=== PATIENT | male | born 1975 | race Caucasian/White ===

== ENCOUNTER 2024-08-26 16:32 | Inpatient (IN) | payer OTHER, SELFPAY ==
[2024-08-26 12:21] VITALS: BP 140/90
[2024-08-26 12:44] LABS: % Basophils 0.6 % (0-2); % Eosinophils 2.1 % (0-6); % Immature Granulocytes 0.9 % (0-0.5); % Lymphocytes 9.3 % (20.5-51.1); % Monocytes 8.6 % (1.7-9.3); % Neutrophils 78.5 % (42.2-75.2); Absolute Basophils 0.1 10^3/uL (0-0.2); Absolute Eosinophils 0.2 10^3/uL (0-0.7); Absolute Immature Granulocytes 0.1 10^3/uL (0-0.05); Absolute Lymphocytes 0.9 10^3/uL (1.2-3.4); Absolute Monocytes 0.8 10^3/uL (0.1-0.6); Absolute Neutrophils 7.4 10^3/uL (1.4-6.5); Hematocrit 37.7 % (39.0-52.0); Hemoglobin 12.7 g/dL (13.0-18.0); Mean Corp Hgb Conc. 33.7 g/dL (33.0-37.0); Mean Corpuscular Hgb 30.8 pg (27.0-31.0); Mean Corpuscular Volume 91.3 fL (80.0-94.0); Mean Platelet Volume 12.3 fL (7.4-10.4); Nucleated Red Blood Cells % 0 % (-); Platelet Count 200 10^3/uL (130-400); Red Blood Cell Count 4.13 10^6/uL (4.70-6.10); Red Cell Dist. Width 12.9 % (11.5-14.5); White Blood Cell Count 9.4 10^3/uL (4.8-10.8)
[2024-08-26 13:42] LABS: ALT (SGPT) 194 U/L (0-50); AST (SGOT) 118 U/L (17-59); Albumin 3.9 g/dl (3.5-5.0); Alkaline Phosphatase 305 U/L (38-126); Blood Urea Nitrogen 20 mg/dl (9-20); Calcium 8.9 mg/dl (8.4-10.2); Carbon Dioxide 19 mmol/L (22-30); Chloride 105 mmol/L (98-107); Glucose 101 mg/dl (70-99); Potassium 5.2 mmol/L (3.5-5.1); Sodium 137 mmol/L (135-145); Total Bilirubin 0.8 mg/dl (0.2-1.3); Total Protein 7.7 g/dl (6.3-8.2); eGFR > 60.00
--- NOTE | 2024-08-26 14:54 | ED.GENMED ---
History of Present Illness
General
Chief Complaint: Skin Problem
Source: patient
Exam Limitations: none
Time Seen by Provider: 08/26/24 14:28
Nursing documentation reviewed up to this point in time: agreed with
History of Present Illness
History of Present Illness:
The patient is a 48-year-old male with past history of hypertension hyperlipidemia presenting to the emergency department with concerns of right middle finger swelling and discomfort over the past few days. Saw his primary care doctor 2 days ago
and was started on Keflex as well as Bactrim and has been taking this as prescribed but has had worsening symptoms. No systemic symptoms no fevers no vomiting. Denies specific trauma to the area
Past History
Past History
ED Past Medical History: CAD, HTN and Hypercholesterolemia
ED Past Surgical History: Cardiac (Cardiac stents)
Social History
Tobacco: Non-smoker
Alcohol: Occasional
Drug: None
Employment: Employed
Family History
Family History: Other (Father with cancer of the tongue)
Review of Systems
Review of Systems
Allergies reviewed?: Yes
All Other Systems: ROS reviewed and negative except as documented in HPI and ROS
Phy Exam
Physical Exam
Physical Exam:
GENERAL: Alert , in no apparent distress
EYE: pupils equal and reactive
NECK: Supple, no significant adenopathy.
ENT: o/p clr, mmm.
CARDIAC: Regular rate and rhythm .
LUNGS: Clear breath sounds bilaterally, no acute respiratory distress, no wheezes/rales/rhonchi
ABDOMEN: Soft, without focal tenderness, no r/g, no cvat
NEUROLOGICAL: Alert and oriented, no focal neuro deficits
SKIN: Significant redness and swelling to the right middle finger with diffuse swelling circumferentially some redness extending into the palm with tenderness throughout. Unable to flex or extend the finger without significant discomfort. Holding
in a slight flexion
MUSCULOSKELETAL: No edema, well perfused.
PSYCH: Normal and appropriate interaction.
Course
Orders/Labs/Results
Orders:
Orders
08/26/24 12:33
Complete Blood Count/With Diff Urgent
Comprehensive Metabolic Panel Urgent
08/26/24 14:34
CR Hand - Right Min 3 Views Urgent
Comment:
Reason For Exam: middle finger swelling pain
08/26/24 14:35
CefTRIAXone [Rocephin] 2,000 mg IV NOW STA
08/26/24 14:39
Vancomycin [Vancocin] 2,000 mg 0.9% Sodium Chloride 500 ml [Nss] 500 ml IV NOW
08/26/24 14:43
Clindamycin 900 mg/50 ml [Cleocin] 900 mg in 50 ml IV NOW
08/26/24 14:55
Ketorolac [Toradol] 15 mg .ROUTE .STK-MED ONE
Sterile Water [Sterile Water For Injection] 20 ml .ROUTE .STK-MED ONE
08/26/24 14:58
Ketorolac [Toradol] 15 mg IV NOW STA
Abnormal Lab Results
08/26/24
12:33
RBC 4.13 L 10^6/uL
(4.70-6.10)
Hgb 12.7 L g/dL
(13.0-18.0)
Hct 37.7 L %
(39.0-52.0)
MPV 12.3 H fL
(7.4-10.4)
Abs Immat Gran (auto) 0.1 H 10^3/uL
(0-0.05)
Absolute Neuts (auto) 7.4 H 10^3/uL
(1.4-6.5)
Absolute Lymphs (auto) 0.9 L 10^3/uL
(1.2-3.4)
Absolute Monos (auto) 0.8 H 10^3/uL
(0.1-0.6)
Immature Gran % 0.9 H %
(0-0.5)
Neutrophils % 78.5 H %
(42.2-75.2)
Lymphocytes % 9.3 L %
(20.5-51.1)
Potassium 5.2 H mmol/L
(3.5-5.1)
Carbon Dioxide 19 L mmol/L
(22-30)
Glucose 101 H mg/dl
(70-99)
AST 118 H U/L
(17-59)
ALT 194 H U/L
(0-50)
Alkaline Phosphatase 305 H U/L
(38-126)
08/26/24 12:33
08/26/24 12:33
Vital Signs
Initial and Last Documented VS:
Initial Vital Signs
Temp Pulse Resp BP Pulse Ox
98.1 F 68 16 140/90 99
08/26/24 12:21 08/26/24 12:21 08/26/24 12:21 08/26/24 12:21 08/26/24 12:21
Last Documented Vital Signs
Temp Pulse Resp BP Pulse Ox
98.2 F 62 20 130/90 99
08/26/24 15:36 08/26/24 15:36 08/26/24 15:36 08/26/24 15:36 08/26/24 12:21
Procedures
Splinting/Sling Placement
Right Third Finger:
Procedure completed by: Myself
Pre-splint extermity exam: neurovascular intact
Type of splint: finger-function position
Splint material: aluminum-foam
Splint checked by provider?: Yes
Normal distal neurovascular exam?: Yes
MDM/Problems Addressed
MDM/Problems Addressed:
48-year-old male presenting to the emergency department with worsening swelling discomfort to the right middle over the past few days. Has been taking outpatient antibiotics without relief. Upon arrival vital signs are normal patient no distress
but does have significant swelling to the right middle finger with extension of the palm. Concern for flexor tenosynovitis. Case was immediately discussed with orthopedics with plans for IV antibiotics and admission to the hospital.
*Critical Care Note
Total Time (30-74mins, 75-104mins- exclusive of procedures): Not Applicable
ED Attending Note
-
Portions of this chart may have been created with voice recognition software.� Occasional wrong word or��sound alike� substitutions may have occurred due to the inherent limitations of voice recognition software.
Discharge Plan
Departure
Patient Disposition: Admit
Date of Disposition: 08/26/24
Time of Disposition: 15:40
Admit to: Med/Surg
Admit to doctor: Luke
Presentation/result/management discussed w/ accepting MD/DO: Hospitalist
Patient with high blood pressure during this ER visit?: No
Condition: Fair
Covid-19: Not Applicable
Discharge Problem:
Finger infection
Prescriptions:
No Action
aspirin 325 MG tablet,delayed release (DR/EC)
325 mg PO DAILY
ibuprofen [Advil] 200 MG tablet
200 mg PO Q6HPRN PRN (Reason: mild pain)
carvedilol [Coreg] 25 mg Tablet
25 mg PO BID
lisinopril 20 mg tablet
20 mg PO DAILY
amlodipine 5 mg Tablet
5 mg PO DAILY
rosuvastatin 20 mg tablet
20 mg PO DAILY@1999
sulfamethoxazole-trimethoprim 800-160 mg tablet
1 tab PO BID
Rx Instructions:
08/26/24: initiated 08/24/24 x 7 days
cephalexin 500 mg tablet
500 mg PO TID
Rx Instructions:
08/26/24: Started 08/24/24 x 7 days
Referrals:
Danilo Cervantes MD [Family Provider] -
Interventions
Interventions:
*Risk Screen - Suicide Last Done: 08/26/24 12:21
*General Assessment Last Done: 08/26/24 12:21
*Neglect/Abuse Screening Last Done: 08/26/24 12:21
ED- Fall Risk Assessment Last Done: 08/26/24 15:37
*ED COVID-19 Vaccine History Last Done: 08/26/24 12:21
ED-Skin Assessment Last Done: 08/26/24 15:37
Discharge Date and Time
Print Language: CZECH
[2024-08-26] MEDS: TORADOL 15 MG IV (15:02)
[2024-08-26] MEDS: ROCEPHIN 2000 MG IV (15:04)
[2024-08-26] MEDS: CLEOCIN 50 IV (15:04)
[2024-08-26 15:36] VITALS: BP 130/90; BMI 42.4
--- NOTE | 2024-08-26 15:56 | HPS.HSE ---
Family Physician
-
Family Physician: Danilo Cervantes
Chief Complaint
-
Right middle finger wound
History of Present Illness
48-year-old male with past history of hypertension hyperlipidemia presenting to the emergency department with concerns of right middle finger swelling and discomfort over the past few days. Patient injured his right middle finger between the
plywood on Friday. He did not notice any skin breakdown at that time. But noticed bloody blisters and few days. He noticed swelling on his finger. His blister popped. saw his primary care doctor 2 days ago and was started on Keflex as well as
Bactrim and has been taking this as prescribed but has had worsening symptoms. Patient denied any fever, chills, headache, dizzy, chest pain, short of breath. Patient denied abdominal pain, nausea, vomiting or diarrhea. Patient denied dysuria
hematuria
Patient is ordered antibiotics in ER. Admitted for further evaluation
Medical History
Past Medical History
Past Medical History: Reports Other
Additional Past Medical History:
Prediabetes
Coronary artery disease
Hypertension
History of MRSA
Past Surgical History: Reports Other
Additional Past Surgical History:
Cardiac stent
-Cholecystectomy
-ACL right knee
Carpal tunnel surgery
Social History
Tobacco: Non-smoker
Alcohol: None
Drug: None
Personal:
Living: With Family
Employment: Employed
Family History
Family History: Not pertinent
Allergies / Home Medications
Allergies reflects when Allergies were last updated in [facility] [employer] [facility]
Home Medications with original date entered in [employer] [facility]
Allergy/Medication List:
Allergies
Allergy/AdvReac Type Severity Reaction Status Date / Time
No Known Allergies Allergy Verified 08/26/24 12:24
Home Medications
aspirin 325 mg tablet,delayed release 325 mg PO DAILY 02/14/19
ibuprofen 200 mg tablet (Advil) 200 mg PO Q6HPRN PRN mild pain 02/14/19
amlodipine 5 mg tablet 5 mg PO DAILY 08/26/24
carvedilol 25 mg tablet (Coreg) 25 mg PO BID 08/26/24
cephalexin 500 mg tablet 500 mg PO TID Infection 08/26/24
lisinopril 20 mg tablet 20 mg PO DAILY 08/26/24
rosuvastatin 20 mg tablet 20 mg PO DAILY@2000 08/26/24
sulfamethoxazole 800 mg-trimethoprim 160 mg tablet 1 tab PO BID Infection 08/26/24
Review of Systems
-
Constitutional: Reports No Symptoms
EENT: Reports No Symptoms
Respiratory: Reports No Symptoms
Cardiac: Reports No Symptoms
Abdomen/GI: Reports No Symptoms
: Reports No Symptoms
Musculoskeletal: Reports No Symptoms
Skin: Reports Other (Right middle finger wound)
Neurological: Reports No Symptoms
Endocrine: Reports No Symptoms
Hematologic/Lymphatic: Reports No Symptoms
Psych: Reports No Symptoms
Physical Exam
Vital Signs
Vital Signs
Temp Pulse Resp BP Pulse Ox
98.2 F 62 20 130/90 99
08/26/24 15:36 08/26/24 15:36 08/26/24 15:36 08/26/24 15:36 08/26/24 12:21
Physical Exam
General: Well Developed, Well Nourished and No Apparent Distress
HEENT: NormoCephalic, Moist mucous membranes and Atraumatic
Respiratory: Clear
Cardiac: S1/S2 and Regular Rhythm; No Murmur or Rub
GI: Soft, Non Tender, Non Distended and Normal Bowel Sounds; No Organomegaly
Rectal: Deferred by Provider
Musculoskeletal: No Clubbing, No Cyanosis and No Edema
Skin: Rash and Other (Right middle finger with open blisters, swelling)
Neuro: AO x 3 and Nonfocal/grossly intact
Psych: Calm
Laboratory Results
-
08/26/24 12:33
08/26/24 12:33
Laboratory Results
Total Bilirubin 0.8 mg/dl (0.2-1.3) 08/26/24 12:33
AST 118 U/L (17-59) H 08/26/24 12:33
ALT 194 U/L (0-50) H 08/26/24 12:33
Alkaline Phosphatase 305 U/L (38-126) H 08/26/24 12:33
Data Reviewed
-
Lab Data: Labs Reviewed by me
Impression/Plan
-
# left finger wound concern for Flexure tenosynovitis
-failed out patient abx therapy
-Hand x-ray pending
-IV antibiotics continued
-vanco and ceftriaxone continued
-ortho, wound care and ID consulted
-Tylenol prn for fever
# Hyperkalemia/chronic acidosis likely dehydration
-K5.2, CO2 19
-normal saline x1 bag
-BMP in am
# Transaminitis
-AST 118, ALT 194,ALK 305
-Continue to trend LFTs
-Patient denied abdominal pain
# Essential hypertension
-Norvasc Coreg, lisinopril continued
# History of cardiac stents
-Aspirin continued
# Hyperlipidemia
-statin continued
# DVT prophylaxis
-scd
# CODE STATUS
- full code
-
-
--- NOTE | 2024-08-26 16:13 | W.PN.UPDATE ---
Update Note
Progress Note Update
This is an addendum to H&P written by CHEMICAL PLANT OPERATOR SUPERVISOR Sofía Davies
I saw and examined the patient.
The CHEMICAL PLANT OPERATOR SUPERVISOR's note was reviewed and I agree with the note.
Comment:
Mr. Rich Schroeder is a 48 yo man with hx essential HTN, HLD who presents to the ER with right middle finger swelling and discomfort over past several days. He was started on Keflex and Bactrim by PCP 2 days ago and presents with worsening symptoms.
Triage VS: T 98.1, P 68, RR 16, BP 140/90, SpO2 99%
On exam patient is awake, alert, in no acute distress. Right finger wrapped; pictures show swelling and erythema with blood blister and discoloration on plantar surface. He is not able to flex finger.
LABS: WBC 9.4, Hg 12.7, PLT 200, Na 137, K+ 5.2, CO2 19, BUN 20, Cr 0.8, Glucose 101, T. Bili 0.8, AST 118, ALT 194, Alk PHos 305
Right middle finger cellulitis versus Flexor Tenosynovitis
-s/p IV Vanc/Ceftriaxone/Clinda in ER
-admit to med/surg
-continue IV Vanc/Ceftriaxone 2G QD
-Dr. Hagan aware of admission, F/U recommendations
-ID consult
-1L IVF
Transaminitis
-in setting of antibiotics/infection
-will trend; if worsens tomorrow consider RUQ US
-IVF as above
Remainder of plan per CHEMICAL PLANT OPERATOR SUPERVISOR note
[2024-08-26] MEDS: VANCOCIN 540 MG IV (16:27)
--- NOTE | 2024-08-26 17:24 | CON.MD ---
Consultation - Medical
-
Right hand/ middle finger infection
Concern for flexor tenosynovitis.
Will continue with IV abx overnight.
NPO after MN. If there is no significant improvements tomorrow AM, surgical I&D will be needed
Dictated [id number]
[2024-08-26 18:06] VITALS: BP 131/93
[2024-08-26] MEDS: TYLENOL 650 MG PO (19:13)
[2024-08-26 20:38] VITALS: BP 148/96; BMI 42.0
--- NOTE | 2024-08-26 20:49 | PHA.VAN.IN ---
Assessment
- Assessment
Renal Function: Appears similar to baseline
Concomitant Antimicrobials: ROCEPHIN
- Previous Dosing Experience
Previous Regimen: NONE
AUC Dosing Plan
- Dosing Variables
Dosing Weight (kg): 119
Dosing CrCl (ml/min): 100
Vd coefficient (L/kg): 0.5
- Empiric Dosing
Initial / Loading Dose: 2GM
Maintenance Regimen: 1250MG IV Q12H
Estimated AUC (mcg*h/mL): 512
Estimated Peak (mcg*h/mL): 32.3
Estimated Trough (mcg/ml): 12.9
Estimated Half Life (H): 7.9
Pharmacokinetics Vancomycin I
- -
Patient Age: 48
Patient Sex: Male
Vancomycin Day #: 1
Indication: Skin And Soft Tissue (FINGER FLEXURE TENOSYNOVITIS)
Requesting Provider: SARITA
Height / Weight:
Height 5 ft 6 in
Actual Weight 118.019 kg
Pertinent Past Medical History: FAILED OUTPT [place]
- Vital Signs / Lab Results
Temp Pulse Resp BP Pulse Ox
98.8 F 72 17 148/96 97
08/26/24 20:38 08/26/24 20:38 08/26/24 20:38 08/26/24 20:38 08/26/24 20:38
Lab Results - Hematology
08/26/24
12:33
WBC 9.4
Lab Results - Chemistry
08/26/24
12:33
BUN 20
Creatinine 0.8
Albumin 3.9
--- NOTE | 2024-08-26 21:00 | PTCARENOTE ---
Pt. received from ED via stretcher and able to walk to room bed with steady, independent gait. Pt. A&Ox3, in NAD, c/o 5/10 R 3rd finger pain, finger splinted and wrapped from ER, CDI. Pt. oriented to room and unit policies, questions answered, bed
locked and in lowest position, and call light within reach.
[2024-08-26] MEDS: NSS 1000 IV (21:04)
[2024-08-26] MEDS: CRESTOR 20 MG PO (21:04)
[2024-08-26] MEDS: COREG 25 MG PO (21:04)
[2024-08-26] MEDS: ROXICODONE 5 MG PO (21:04)
[2024-08-26] MEDS: DILAUDID 0.5 MG IV (22:31)
[2024-08-26 23:23] VITALS: BP 141/96
[2024-08-27] VITALS (12 sets, daily range): BP systolic 95–151; BP diastolic 57–104
[2024-08-27] MEDS: DILAUDID 0.5 MG IV ×4 (02:11→10:17)
[2024-08-27] MEDS: VANCOCIN 275 MG IV ×2 (05:07→17:51)
[2024-08-27 06:56] LABS: ALT (SGPT) 154 U/L (0-50); AST (SGOT) 65 U/L (17-59); Albumin 3.5 g/dl (3.5-5.0); Alkaline Phosphatase 275 U/L (38-126); Blood Urea Nitrogen 15 mg/dl (9-20); Calcium 8.9 mg/dl (8.4-10.2); Carbon Dioxide 19 mmol/L (22-30); Chloride 102 mmol/L (98-107); Direct Bilirubin 0.3 mg/dl (0.0-0.4); Estimated Creatinine Clearance > 125 ml/min; Glucose 113 mg/dl (70-99); Sodium 135 mmol/L (135-145); Total Bilirubin 0.5 mg/dl (0.2-1.3); eGFR > 60.00
--- NOTE | 2024-08-27 07:28 | W.PN.ORTHO ---
Today's Communication / Plan
-
Right middle finger infection, concern for flexor tenosynovitis
-No significant improvement overnight
-Will plan for OR later today for right middle finger I&D under the direction of Dr. Hagan
-Remain NPO
-Consent has been obtained and is at the OR lockstitch front maker. Surgical site is marked.
-Continue with pain management as needed
-Maintain dressing. Adjust/reinforce as needed
-Will continue to follow along
Assessment
.
Distal Motor Intact: Yes
Dressing:
Clean, dry and intact.
Plan
.
Activity:
Out of bed.
PT/OT
Subjective
.
.:
Patient resting comfortably in bed this morning. He reports that his finger feels about the same. No significant improvement. He has been getting antibiotics overnight
Vital Signs and Labs
.
Vital Signs and Labs:
Lab Results
08/26/24 12:33
08/27/24 04:39
Temp Pulse Resp BP Pulse Ox
98.6 F 62 17 141/96 94
08/26/24 23:23 08/26/24 23:23 08/26/24 23:23 08/26/24 23:23 08/26/24 23:23
Physical Exam
-
Right Hand: middle finger with ruptured blister with serous drainage. +ecchymosis. +edema. +erythema. +pain with attempted range of motion of finger. sensation intact to light touch. cap refill <2secs
--- NOTE | 2024-08-27 07:46 | WOUNDNOTE ---
R MIDDLE FINGER (SIDE OF)
--- NOTE | 2024-08-27 07:46 | WOUNDNOTE ---
R MIDDLE FINGER (RANKIN SIDE)
[2024-08-27] MEDS: ZESTRIL 20 MG PO (07:47)
[2024-08-27] MEDS: COREG 25 MG PO ×2 (07:47→20:23)
[2024-08-27] MEDS: NORVASC 5 MG PO (07:48)
--- NOTE | 2024-08-27 07:48 | WOUNDNOTE ---
[facility] RN note: Patient admitted with flexure tenosynovitis. 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 Patient NPO for R middle finger surgery today. Patient seen by ortho PA prior to visit.
See H&P for complete history.
PMH: HTN, CAD, HTN, MRSA, cardiac stent, ACL R knee, carpel tunnel.
Wound Location and type/assessment: Patient admitted with: R middle finger red swollen blistered skin with dark skin at distal gardner side finger tip. +numbness distal tip. +sensation base of middle finger. R middle finger warm to touch. +R radial
pulse.
Appetite: NPO for surgery.
Pressure redistribution devices in place: [employer]. Patient is mobile.
Plan: R middle finger dressing changed with splint reapplied. Pillow given to elevate RUE.
Finger to be managed by orthopedic service. Will sign off. Call if needed.
[2024-08-27] MEDS: ASPIRIN ENTERIC COATED PO (07:56)
--- NOTE | 2024-08-27 08:28 | PHA.VAN.FU ---
Vancomycin Assessment / Plan
- Assessment
Renal Function: SCR Increasing (0.6)
WBC's are: WNL
In the past 24 hrs, patient has been: Afebrile (ceftriaxone)
- Dosing Plan
Continue: vancomycin 1250 mg q12h
- Monitoring Plan
No level(s) ordered at this time: consider levels in next few days
- Follow Up
Pharmacy will continue to follow.
Vancomycin Follow UP
- -
Patient Age: 48
Patient Sex: Male
Vancomycin Day #: 2
Indication: Skin And Soft Tissue (FINGER FLEXURE TENOSYNOVITIS)
Requesting Provider: SARITA
Height / Weight:
Height 5 ft 6 in
Actual Weight 118.019 kg
Pertinent Past Medical History: FAILED OUTPT [place]
- Vital Signs / Lab Results
Temp Pulse Resp BP Pulse Ox
98.6 F 62 17 141/96 94
08/26/24 23:23 08/26/24 23:23 08/26/24 23:23 08/26/24 23:23 08/26/24 23:23
Lab Results - Hematology
08/26/24
12:33
WBC 9.4
Lab Results - Chemistry
08/26/24 08/27/24
12:33 04:39
BUN 20 15
Creatinine 0.8 0.6 L
Estimated Creat Clear > 125
Albumin 3.9 3.5
--- NOTE | 2024-08-27 09:28 | CON.ID ---
Consultation
-
Date/Time Consultation Requested: August 26, 20242022
Date/Time Consultation Performed: August 27, [id number]
Requesting Provider: JOSE Torres
Performing Provider: Dr. Concepción Beatty
Reason for Consultation: Middle finger infection
Chief Complaint / Past History
Chief Complaint
Right middle finger swelling, redness and pain
History of Present Illness
48-year-old male with history of hypertension who presented to the ER August 26 due to worsening right middle finger wound. He works in [employer] and accidentally got his bare right middle finger caught between the plywood at work last week
August 20. No wounds at the time. The next day, the finger became swollen, red. 08/21 Hand xray unremarkable. He then developed a blister. His primary care prescribed Bactrim and cephalexin without improvement 2 days into the antibiotics. He
therefore came to the ER. No fevers or chills. Ortho is planning to take him to the OR today due to concern for tenosynovitis. Patient is up-to-date with his tetanus shot a year ago. No fevers or chills.
Past History
Additional Past Medical History:
Hypertension
Dyslipidemia
CAD s/p stent
Class III obesity BMI 42
R knee ACL repair
Cholecystectomy
Internal hemorrhoid banding
Allergy History:
No Known Allergies Allergy (Verified 08/26/24 12:24)
Medications Reviewed: Yes
Current Antibiotics:
Vancomycin
Ceftriaxone
Social History
Tobacco: Non-Smoker
Alcohol: None
Employment: Employed (Cabinetry)
Family History
Family History: Not Pertinent
Review of Systems
Review of Systems
General: Negative Fever, Chills or Change in Appetite
HEENT: Negative Sinus Problems, Headache or Pharyngitis
Cardiovascular: Negative Chest Pain or Dyspnea
Respiratory: Negative Dyspnea or Cough
Gasteroenterology: Negative Nausea, Vomiting or Diarrhea
Genital / Urological: Negative Dysuria or Flank Pain
Endocrine: Negative Weakness
Neurological: Negative Dizziness
All systems: All other systems were reviewed and were negative
Vital Signs
Temp Pulse Resp BP Pulse Ox
98.3 F 71 16 151/104 97
08/27/24 07:30 08/27/24 07:30 08/27/24 07:30 08/27/24 07:30 08/27/24 07:30
Physical Exam
Physical Exam
Constitutional: No Acute Distress and Obese
Eyes: No Conjunctival Hemorrhage and Sclera Anicteric
Cardiovascular: Regular Rate and S1/S2
Pulmonary: Clear
Gastrointestinal: Soft, Non Tender, Non Distended and Normal Bowel Sounds
Genito-Urinary: Negative CVA Tenderness
Extremities: Other (Right hand 1+ edema. Right middle finger very edematous, erythema from proximal finger to distal finger with large blister laterally and entire ventral finger, with black skin distally)
Neurological: AO x 3
Lab / Diagnostic Study Results
08/26/24 12:33
08/27/24 04:39
Abs Immat Gran (auto) 0.1 10^3/uL (0-0.05) H 08/26/24 12:33
Absolute Neuts (auto) 7.4 10^3/uL (1.4-6.5) H 08/26/24 12:33
Absolute Lymphs (auto) 0.9 10^3/uL (1.2-3.4) L 08/26/24 12:33
Absolute Monos (auto) 0.8 10^3/uL (0.1-0.6) H 08/26/24 12:33
Absolute Basos (auto) 0.1 10^3/uL (0-0.2) 08/26/24 12:33
Immature Gran % 0.9 % (0-0.5) H 08/26/24 12:33
Neutrophils % 78.5 % (42.2-75.2) H 08/26/24 12:33
Lymphocytes % 9.3 % (20.5-51.1) L 08/26/24 12:33
Monocytes % 8.6 % (1.7-9.3) 08/26/24 12:33
Eosinophils % 2.1 % (0-6) 08/26/24 12:33
Basophils % 0.6 % (0-2) 08/26/24 12:33
Microbiology Results
08/26/24 Right hand XRAY. There is severe soft tissue swelling of the middle finger. There are no radiopaque foreign bodies. There is old healed fracture of the diaphysis of the fifth metacarpal
Assessment / Plan
# Right middle finger SSTI, probable flexor tenosynovitis after injury between 2 plywoods
- Up to date with tetanus vaccine
- To OR today for I+D, DEEP TISSUE CULTURE
- Vancomycin and cefepime pending cx data.
--- NOTE | 2024-08-27 10:37 | W.PN.HOSP.TC ---
Addendum entered and electronically signed by Isabel Trevino MD 08/27/24 10:47:
X ray reviewed by me
Soft tissue edema. No foreign body
Original Note:
Today's Communication/Plan
-
for OR today
Assessment / Plan
Assessment / Plan
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 He got his last tetanus shot last year on examination awake alert
Cardiovascular system S1-S2 appreciated
Chest clear to auscultation
Abdomen soft and nontender
Right middle finger with edema hand edema also noted. Erythema in the whole finger with a blister in the palmar aspect and lateral black is discoloration noted distally
# Right middle finger soft tissue injury possible tenosynovitis
Orthopedics evaluation appreciated for OR today
Was on Keflex and Bactrim as outpatient-failed
Needs OR culture
Continue cefepime and vancomycin
Factious disease and Ortho consultations appreciated
# Hypokalemia likely secondary to ibuprofen and lisinopril-Watch
# Transaminitis -history of cholecystectomy
No right upper quadrant tenderness
Transaminitis improving ,follow for now
# Hypertension-continue Norvasc Coreg and lisinopril
If potassium runs high we may need to cut back or stop lisinopril
# Coronary artery disease
History of non-STEMI 2008 with drug-eluting stent to OM 3
Had residual LAD and RCA disease
Continue aspirin/Coreg/lisinopril
# Hyperlipidemia-hold statin with elevated LFTs
# Obesity with a BMI of 42
# Ex-smoker
# DVT prophylaxis-Lovenox
# Full code
Anticipated Discharge: 24 - 48 hours
Subjective/Interval History
-
Date of Service: August 27, 2024
Objective Data
-
Labs:
Laboratory Results
08/27/24
04:39
Sodium 135
Potassium 5.0
Chloride 102
Carbon Dioxide 19 L
BUN 15
Creatinine 0.6 L
Glucose 113 H
Calcium 8.9
Total Bilirubin 0.5
AST 65 H
ALT 154 H
Alkaline Phosphatase 275 H
Vital Signs:
Vital Signs
Temp Pulse Resp BP Pulse Ox
98.3 F 71 16 151/104 97
08/27/24 07:30 08/27/24 07:30 08/27/24 07:30 08/27/24 07:30 08/27/24 07:30
--- NOTE | 2024-08-27 11:39 | PTCARENOTE ---
Pt being sent to OR. Report given to Joan. Pt changed gown, voided and and used preop wipes. will follow him down to waiting room.
[2024-08-27] MEDS: STERILE WATER FOR INJECTION 10 ML IV ×2 (13:20→21:22)
[2024-08-27] MEDS: MAXIPIME 2000 MG IV ×2 (13:20→21:22)
--- NOTE | 2024-08-27 13:37 | W.IMMPOSTOP ---
Addendum entered and electronically signed by Alli Hagan MD 09/03/24 16:26:
Procedure was excisional debridement as rongeur was used to remove necrotic tissue and the excessive infectious tenosynovium
Original Note:
Surgical Immed Post Op Note
-
Primary Surgeon: Danya
Pre-op Diagnosis: Right middle flexor tenosynovitis
Post-op Diagnosis: Same
Procedure Performed: Right middle flexor tendon and hand I&D
Anesthesia Type: Gen
Specimen / Cultures: Right middle finger flexor sheath purulence
Estimated Blood Loss: 5cc
Complications: None
Operative Findings: Dictated
Plan:
- IV abx. Monitor culture results
- Keep dressing and packing until Friday. Dressing change and packing removal on Friday
- Additional I&D may be needed depending on clinical progression
--- NOTE | 2024-08-27 16:08 | CM ---
Patient seen at bedside with .
OR today Right middle flexor tendon and hand I&D
Lives at home with , 1 story, 1 step to enter
PLOF: Independent
Denies DME
Denies HH/Rehab
Denies insecurities
PCP: Danilo Cervantes
Pharmacy: [facility] [address], [place]
PLAN: TBD, CM to follow for needs
[2024-08-27] MEDS: NSS 1000 IV (17:55)
[2024-08-27] MEDS: LOVENOX 40 MG SC (17:56)
[2024-08-27] MEDS: CELEBREX 100 MG PO (20:15)
[2024-08-27] MEDS: SENOKOT 17.2 MG PO (20:16)
[2024-08-27] MEDS: COLACE 100 MG PO (20:16)
[2024-08-27] MEDS: ROXICODONE 5 MG PO (20:16)
[2024-08-28 03:40] VITALS: BP 108/54
[2024-08-28] MEDS: STERILE WATER FOR INJECTION 10 ML IV ×3 (05:03→21:29)
[2024-08-28] MEDS: NSS 1000 IV (05:03)
[2024-08-28] MEDS: MAXIPIME 2000 MG IV ×3 (05:03→21:29)
[2024-08-28] MEDS: VANCOCIN 275 MG IV ×2 (05:10→17:52)
[2024-08-28 07:05] VITALS: BP 128/85
[2024-08-28 07:55] LABS: % Basophils 0.3 % (0-2); % Eosinophils 0.1 % (0-6); % Immature Granulocytes 1.2 % (0-0.5); % Lymphocytes 5.6 % (20.5-51.1); % Monocytes 6.8 % (1.7-9.3); Absolute Immature Granulocytes 0.2 10^3/uL (0-0.05); Absolute Lymphocytes 0.8 10^3/uL (1.2-3.4); Absolute Monocytes 0.9 10^3/uL (0.1-0.6); Absolute Neutrophils 11.7 10^3/uL (1.4-6.5); Hematocrit 35.1 % (39.0-52.0); Hemoglobin 12.1 g/dL (13.0-18.0); Mean Corp Hgb Conc. 34.5 g/dL (33.0-37.0); Mean Corpuscular Hgb 32.3 pg (27.0-31.0); Mean Corpuscular Volume 93.6 fL (80.0-94.0); Mean Platelet Volume 12.3 fL (7.4-10.4); Nucleated Red Blood Cells % 0 % (-); Platelet Count 204 10^3/uL (130-400); Red Blood Cell Count 3.75 10^6/uL (4.70-6.10); Red Cell Dist. Width 12.8 % (11.5-14.5); White Blood Cell Count 13.7 10^3/uL (4.8-10.8)
[2024-08-28 08:26] LABS: ALT (SGPT) 123 U/L (0-50); AST (SGOT) 39 U/L (17-59); Albumin 3.4 g/dl (3.5-5.0); Alkaline Phosphatase 270 U/L (38-126); Blood Urea Nitrogen 15 mg/dl (9-20); Calcium 9.1 mg/dl (8.4-10.2); Carbon Dioxide 19 mmol/L (22-30); Chloride 105 mmol/L (98-107); Direct Bilirubin 0.3 mg/dl (0.0-0.4); Estimated Creatinine Clearance > 125 ml/min; Glucose 122 mg/dl (70-99); Magnesium 2.2 mg/dl (1.6-2.3); Potassium 4.9 mmol/L (3.5-5.1); Sodium 132 mmol/L (135-145); Total Bilirubin 0.5 mg/dl (0.2-1.3); Total Protein 6.9 g/dl (6.3-8.2); eGFR > 60.00
--- NOTE | 2024-08-28 08:37 | W.PN.ORTHO ---
Today's Communication / Plan
-
Ice with elevation to above level of heart to control swelling and pain
Vancomycin/cefepime per ID recommendations
Deep cultures pending
Tomorrow dressing will be taken down and packing removed then start dilute Hibiclens soaks
N.p.o. for Friday and Dr. Hagan will reevaluate him at lunchtime for possible repeat I&D
Assessment
.
Distal Motor Intact: Yes
Dressing:
Clean, dry and intact.
Plan
.
Surgery / Date: Right middle finger I & D 08/27 Danya
DVT Prophylaxis: Aspirin
Activity:
Out of bed.
PT/OT
Subjective
.
.:
Patient resting comfortably.
Vital Signs and Labs
.
Vital Signs and Labs:
Lab Results
08/28/24 06:50
08/28/24 06:50
Temp Pulse Resp BP Pulse Ox
98.3 F 70 18 128/85 98
08/28/24 07:05 08/28/24 07:05 08/28/24 07:05 08/28/24 07:05 08/28/24 07:05
--- NOTE | 2024-08-28 09:02 | PHA.VAN.FU ---
Vancomycin Assessment / Plan
- Assessment
Renal Function: SCR Decreasing
WBC's are: Trending Up
In the past 24 hrs, patient has been: Afebrile
Concomitant Antimicrobials: Cefepime
- Dosing Plan
Continue: Vanc 1250mg IV q12H
- Monitoring Plan
Peak Level: 2/1 at 2100
Trough Level: 2/2 at 0530
- Follow Up
Pharmacy will continue to follow.
Vancomycin Follow UP
- -
Patient Age: 48
Patient Sex: Male
Vancomycin Day #: 3
Indication: Skin And Soft Tissue (FINGER FLEXURE TENOSYNOVITIS)
Requesting Provider: SARITA
Height / Weight:
Height 5 ft 6 in
Actual Weight 118.019 kg
Pertinent Past Medical History: FAILED OUTPT [place]
- Vital Signs / Lab Results
Temp Pulse Resp BP Pulse Ox
98.3 F 70 18 128/85 98
08/28/24 07:05 08/28/24 07:05 08/28/24 07:05 08/28/24 07:05 08/28/24 07:05
Lab Results - Hematology
08/26/24 08/28/24
12:33 06:50
WBC 9.4 13.7 H
Lab Results - Chemistry
08/26/24 08/27/24 08/28/24
12:33 04:39 06:50
BUN 20 15 15
Creatinine 0.8 0.6 L 0.6 L
Estimated Creat Clear > 125 > 125
Albumin 3.9 3.5 3.4 L
Microbiology Results
08/27/24 13:40 Gram Stain - Preliminary
Hand - Right
[2024-08-28] MEDS: COLACE 100 MG PO ×2 (10:20→21:29)
[2024-08-28] MEDS: COREG 25 MG PO ×2 (10:20→21:30)
[2024-08-28] MEDS: ZESTRIL 20 MG PO (10:21)
[2024-08-28] MEDS: SENOKOT 17.2 MG PO ×2 (10:21→21:29)
[2024-08-28] MEDS: CELEBREX 100 MG PO ×2 (10:22→21:28)
[2024-08-28] MEDS: ASPIRIN ENTERIC COATED 325 MG PO (10:22)
[2024-08-28] MEDS: NORVASC 5 MG PO (10:22)
[2024-08-28] MEDS: ROXICODONE 5 MG PO ×2 (10:22→15:01)
--- NOTE | 2024-08-28 10:47 | W.PN.HOSP.TC ---
Today's Communication/Plan
-
Continue IV antibiotics and wait for cultures
Labs in the morning
Hemoglobin A1c
Assessment / Plan
Assessment / Plan
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 He got his last tetanus shot last year on examination awake alert
Cardiovascular system S1-S2 appreciated
Chest clear to auscultation
Abdomen soft and nontender
Right middle finger with edema hand edema also noted. Erythema in the whole finger with a blister in the palmar aspect and lateral black is discoloration noted distally
# Right middle finger soft tissue injury possible tenosynovitis
Was on Keflex and Bactrim as outpatient-failed
Status post I&D in the OR by Dr. Hagan 08/27/2024
Continue cefepime and vancomycin
OR culture-rare WBC no organism
Infectious disease and Ortho consultations appreciated
# Hyperkalemia likely secondary to ibuprofen and lisinopril-Watch
# Mild hyponatremia
# Mild hyperglycemia-check hemoglobin A1c
# Transaminitis -history of cholecystectomy
No right upper quadrant tenderness
Transaminitis improving ,follow for now
# Hypertension-continue Norvasc Coreg and lisinopril
If potassium runs high we may need to cut back or stop lisinopril
# Coronary artery disease
History of non-STEMI 2008 with drug-eluting stent to OM 3
Had residual LAD and RCA disease
Continue aspirin/Coreg/lisinopril
# Hyperlipidemia-hold statin with elevated LFTs
# Obesity with a BMI of 42
# Ex-smoker
# DVT prophylaxis-Lovenox
# Full code
Anticipated Discharge: > 48 hours
Subjective/Interval History
-
Date of Service: August 28, 2024
Objective Data
-
Labs:
Laboratory Results
08/28/24
06:50
WBC 13.7 H
Hgb 12.1 L
Hct 35.1 L
Plt Count 204
Sodium 132 L
Potassium 4.9
Chloride 105
Carbon Dioxide 19 L
BUN 15
Creatinine 0.6 L
Glucose 122 H
Calcium 9.1
Total Bilirubin 0.5
AST 39
ALT 123 H
Alkaline Phosphatase 270 H
Vital Signs:
Vital Signs
Temp Pulse Resp BP Pulse Ox
98.3 F 70 18 128/85 98
08/28/24 07:05 08/28/24 10:20 08/28/24 07:05 08/28/24 10:20 08/28/24 07:05
I&O
08/27/24 08/28/24 08/29/24
06:59 06:59 06:59
Intake Total 1854
Balance 1854
[2024-08-28 11:15] VITALS: BP 124/90
[2024-08-28 12:57] LABS: Glycohemoglobin (HgbA1c) 5.8 % (4.0-5.6)
[2024-08-28 15:03] VITALS: BP 147/85
[2024-08-28] MEDS: LOVENOX 40 MG SC (17:51)
[2024-08-28] MEDS: NSS IV (17:51)
[2024-08-28 22:24] LABS: Vancomycin Peak 15.9 ug/ml (18-26)
[2024-08-28 23:31] VITALS: BP 155/94
[2024-08-29 05:15] LABS: % Basophils 0.6 % (0-2); % Eosinophils 1.1 % (0-6); % Immature Granulocytes 1.1 % (0-0.5); % Lymphocytes 10.7 % (20.5-51.1); % Monocytes 9.4 % (1.7-9.3); % Neutrophils 77.1 % (42.2-75.2); Absolute Basophils 0.1 10^3/uL (0-0.2); Absolute Eosinophils 0.1 10^3/uL (0-0.7); Absolute Immature Granulocytes 0.1 10^3/uL (0-0.05); Absolute Monocytes 0.8 10^3/uL (0.1-0.6); Absolute Neutrophils 6.9 10^3/uL (1.4-6.5); Hematocrit 34.8 % (39.0-52.0); Hemoglobin 11.8 g/dL (13.0-18.0); Mean Corp Hgb Conc. 33.9 g/dL (33.0-37.0); Mean Corpuscular Hgb 31.9 pg (27.0-31.0); Mean Corpuscular Volume 94.1 fL (80.0-94.0); Mean Platelet Volume 11.7 fL (7.4-10.4); Nucleated Red Blood Cells % 0 % (-); Platelet Count 222 10^3/uL (130-400); Red Cell Dist. Width 12.9 % (11.5-14.5); White Blood Cell Count 8.9 10^3/uL (4.8-10.8)
[2024-08-29 05:39] LABS: ALT (SGPT) 118 U/L (0-50); AST (SGOT) 41 U/L (17-59); Albumin 3.4 g/dl (3.5-5.0); Alkaline Phosphatase 211 U/L (38-126); Blood Urea Nitrogen 16 mg/dl (9-20); Calcium 9.1 mg/dl (8.4-10.2); Carbon Dioxide 21 mmol/L (22-30); Chloride 107 mmol/L (98-107); Direct Bilirubin 0.3 mg/dl (0.0-0.4); Estimated Creatinine Clearance > 125 ml/min; Glucose 121 mg/dl (70-99); Potassium 4.8 mmol/L (3.5-5.1); Sodium 138 mmol/L (135-145); Total Bilirubin 0.3 mg/dl (0.2-1.3); Total Protein 7.4 g/dl (6.3-8.2); eGFR > 60.00
[2024-08-29] MEDS: STERILE WATER FOR INJECTION 10 ML IV ×3 (06:30→22:07)
[2024-08-29] MEDS: VANCOCIN 275 MG IV ×3 (06:31→22:09)
[2024-08-29] MEDS: MAXIPIME 2000 MG IV ×3 (06:31→22:06)
[2024-08-29] MEDS: ROXICODONE 5 MG PO ×3 (06:44→23:15)
[2024-08-29 06:46] LABS: Vancomycin Trough 8.3 ug/ml (5-20)
[2024-08-29 08:15] VITALS: BP 156/92
[2024-08-29] MEDS: ZESTRIL 20 MG PO (08:38)
[2024-08-29] MEDS: CELEBREX 100 MG PO ×2 (08:38→20:41)
[2024-08-29] MEDS: ASPIRIN ENTERIC COATED 325 MG PO (08:39)
[2024-08-29] MEDS: COREG 25 MG PO ×2 (08:39→20:41)
[2024-08-29] MEDS: NORVASC 5 MG PO (08:39)
[2024-08-29] MEDS: COLACE PO ×2 (08:39→20:43)
[2024-08-29] MEDS: SENOKOT PO ×2 (08:40→20:43)
--- NOTE | 2024-08-29 08:47 | PHA.VAN.FU ---
Vancomycin Assessment / Plan
- Assessment
Renal Function: Stable
WBC's are: Trending Down
In the past 24 hrs, patient has been: Afebrile
Concomitant Antimicrobials: Cefepime
- Assessment - Therapeutic Drug Monitoring
Extrapolated Cmax (mcg/mL): 19.9
Peak level was drawn: Appropriately
Extrapolated Cmin (mcg/mL): 7.5
Trough Drawn: Appropriately
Calculated AUC (mcg*h/mL): 307
Calculated ke: 0.0933
Calculated half life (H): 7.4
Calculated Vd (L): 87.06
Calculated Vanc CL (ml/min): 135.39
- Dosing Plan
Adjust Regimen to: Vanc 1250mg IV q8H
New Regimen Predicts: AUC (494), Peak (27.3), Trough (14.9)
- Monitoring Plan
No level(s) ordered at this time: Consider levels after 2/3 2200 dose
- Follow Up
Pharmacy will continue to follow.
Vancomycin Follow UP
- -
Patient Age: 48
Patient Sex: Male
Vancomycin Day #: 4
Indication: Skin And Soft Tissue (FINGER FLEXURE TENOSYNOVITIS)
Requesting Provider: SARITA
Height / Weight:
Height 5 ft 6 in
Actual Weight 118.019 kg
Pertinent Past Medical History: FAILED OUTPT [place]
- Vital Signs / Lab Results
Temp Pulse Resp BP Pulse Ox
97.6 F 68 18 155/94 93
08/28/24 23:31 08/29/24 08:39 08/28/24 23:31 08/29/24 08:39 08/28/24 23:31
Lab Results - Hematology
08/26/24 08/28/24 08/29/24
12:33 06:50 04:44
WBC 9.4 13.7 H 8.9
Lab Results - Chemistry
08/26/24 08/27/24 08/28/24
12:33 04:39 06:50
BUN 20 15 15
Creatinine 0.8 0.6 L 0.6 L
Estimated Creat Clear > 125 > 125
Albumin 3.9 3.5 3.4 L
08/29/24
04:44
BUN 16
Creatinine 0.6 L
Estimated Creat Clear > 125
Albumin 3.4 L
Microbiology Results
08/27/24 13:40 Wound Culture - Preliminary
Hand - Right Gram Stain - Preliminary
08/27/24 13:40 Anaerobic Culture - Preliminary
Hand - Right Culture pending. Anaerobic cultures are examined after 3
days incubation. Additional information to follow.
Therapeutic Drug Monitoring
Vancomycin Peak 15.9 ug/ml (18-26) L 08/28/24 21:46
Vancomycin Trough 8.3 ug/ml (5-20) 08/29/24 04:44
[2024-08-29] MEDS: ROXICODONE 10 MG PO (09:55)
--- NOTE | 2024-08-29 10:41 | W.PN.ORTHO ---
Today's Communication / Plan
-
Patient should keep a light dressing on right hand for now
Continue with IV antibiotics
Nursing to begin dilute Hibiclens soaks
Pain medication as indicated
Dr. Hagan will reevaluate his hand tomorrow
Assessment
.
Dressing:
Clean, dry and intact.
Plan
.
Surgery / Date: Right middle finger I & D 08/27 Danya
Activity:
Out of bed.
PT/OT
Discharge Plan: Home
Subjective
.
.:
Patient resting comfortably. Sandy present at patient's bedside.
Vital Signs and Labs
.
Vital Signs and Labs:
Lab Results
08/29/24 04:44
08/29/24 04:44
Temp Pulse Resp BP Pulse Ox
97.9 F 68 16 155/94 97
08/29/24 08:15 08/29/24 08:39 08/29/24 08:15 08/29/24 08:39 08/29/24 08:15
Physical Exam
-
Right hand splint/dressing all removed. 2 areas of packing removed. Minimal bleeding noted. Edema and ecchymosis present. Range of motion very limited. Distal neurovascular was intact.
--- NOTE | 2024-08-29 11:58 | W.PN.HOSP.TC ---
Today's Communication/Plan
-
Continue IV antibiotics
Wait for cultures
Assessment / Plan
Assessment / Plan
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 He got his last tetanus shot last year on examination awake alert
Cardiovascular system S1-S2 appreciated
Chest clear to auscultation
Abdomen soft and nontender
Right middle finger with bandage
# Right middle finger soft tissue injury possible tenosynovitis
Was on Keflex and Bactrim as outpatient-failed
Status post I&D in the OR by Dr. Hagan 08/27/2024
Continue cefepime and vancomycin
OR culture-rare WBC no organism
N.p.o. Friday morning for Dr. Hagan to evaluate tomorrow to decide if needs more I&D
# Hyperkalemia likely secondary to ibuprofen and lisinopril-Watch
# Mild hyponatremia
# Mild hyperglycemia hemoglobin A1c 5.8
# Transaminitis -history of cholecystectomy
No right upper quadrant tenderness
Transaminitis improving ,follow for now
# Hypertension-continue Norvasc Coreg and lisinopril
If potassium runs high we may need to cut back or stop lisinopril
# Coronary artery disease
History of non-STEMI 2008 with drug-eluting stent to OM 3
Had residual LAD and RCA disease
Continue aspirin/Coreg/lisinopril
# Hyperlipidemia-hold statin with elevated LFTs
# Obesity with a BMI of 42
# Ex-smoker
# DVT prophylaxis-Lovenox
# Full code
Discussed with at bedside
Anticipated Discharge: Within 24 hours
Subjective/Interval History
-
Date of Service: August 29, 2024
Objective Data
-
Labs:
Laboratory Results
08/29/24
04:44
WBC 8.9
Hgb 11.8 L
Hct 34.8 L
Plt Count 222
Sodium 138
Potassium 4.8
Chloride 107
Carbon Dioxide 21 L
BUN 16
Creatinine 0.6 L
Glucose 121 H
Calcium 9.1
Total Bilirubin 0.3
AST 41
ALT 118 H
Alkaline Phosphatase 211 H
Vital Signs:
Vital Signs
Temp Pulse Resp BP Pulse Ox
97.9 F 68 16 155/94 97
08/29/24 08:15 08/29/24 08:39 08/29/24 08:15 08/29/24 08:39 08/29/24 08:15
I&O
08/28/24 08/29/24 08/30/24
06:59 06:59 06:59
Intake Total 1854 3555 / 355
Output Total 500 / 500
Balance 1854 3055 / 3055
[2024-08-29 15:05] VITALS: BP 123/83
[2024-08-29] MEDS: LOVENOX 40 MG SC (18:35)
[2024-08-29 23:13] VITALS: BP 146/97
[2024-08-30 05:34] LABS: Hematocrit 35.7 % (39.0-52.0); Hemoglobin 12.2 g/dL (13.0-18.0); Mean Corp Hgb Conc. 34.2 g/dL (33.0-37.0); Mean Corpuscular Hgb 32.4 pg (27.0-31.0); Mean Corpuscular Volume 94.9 fL (80.0-94.0); Mean Platelet Volume 11.8 fL (7.4-10.4); Platelet Count 225 10^3/uL (130-400); Red Blood Cell Count 3.76 10^6/uL (4.70-6.10); Red Cell Dist. Width 12.9 % (11.5-14.5); White Blood Cell Count 7.9 10^3/uL (4.8-10.8)
[2024-08-30] MEDS: MAXIPIME 2000 MG IV (05:54)
[2024-08-30] MEDS: STERILE WATER FOR INJECTION 10 ML IV (05:55)
[2024-08-30] MEDS: VANCOCIN 275 MG IV (05:55)
[2024-08-30 06:04] LABS: ALT (SGPT) 106 U/L (0-50); AST (SGOT) 32 U/L (17-59); Albumin 3.3 g/dl (3.5-5.0); Alkaline Phosphatase 214 U/L (38-126); Blood Urea Nitrogen 14 mg/dl (9-20); Calcium 9.2 mg/dl (8.4-10.2); Carbon Dioxide 24 mmol/L (22-30); Chloride 103 mmol/L (98-107); Estimated Creatinine Clearance > 125 ml/min; Glucose 114 mg/dl (70-99); Potassium 4.6 mmol/L (3.5-5.1); Sodium 135 mmol/L (135-145); Total Bilirubin 0.4 mg/dl (0.2-1.3); Total Protein 6.9 g/dl (6.3-8.2); eGFR > 60.00
[2024-08-30] MEDS: ROXICODONE 5 MG PO ×4 (06:21→22:44)
[2024-08-30 07:29] VITALS: BP 154/107
[2024-08-30] MEDS: ZESTRIL 20 MG PO (08:34)
[2024-08-30] MEDS: COLACE PO ×2 (08:34→20:34)
[2024-08-30] MEDS: COREG 25 MG PO ×2 (08:34→20:33)
[2024-08-30] MEDS: ASPIRIN ENTERIC COATED 325 MG PO (08:34)
[2024-08-30] MEDS: CELEBREX 100 MG PO ×2 (08:34→20:34)
[2024-08-30] MEDS: NORVASC 5 MG PO (08:34)
[2024-08-30] MEDS: SENOKOT PO ×2 (08:34→20:34)
[2024-08-30] MEDS: ROCEPHIN 2000 MG IV (10:09)
[2024-08-30] MEDS: STERILE WATER FOR INJECTION 20 ML IV (10:09)
[2024-08-30 11:12] VITALS: BP 122/83
--- NOTE | 2024-08-30 11:37 | W.PN.ID1 ---
Date of Service
Date of Service: August 30, 2024
Today's Communication
- Narrow Vancomycin and cefepime to ceftriaxone.
- At time of discharge, can transition to cephalexin 1000mg po qid through 09/17/24.
Assessment / Plan
# Right middle finger SSTI, flexor tenosynovitis after injury between 2 plywoods
- Up to date with tetanus vaccine
- 08/27 OR I+D
- OR cx Group C strep
- Narrow Vancomycin and cefepime to ceftriaxone.
- At time of discharge, can transition to cephalexin 1000mg po qid through 09/17/24.
Chief Complaint
-: Cellulitis
Subjective / Review of Systems
No complaints.
Vital Signs / Physical Exam
Vital Signs
Vital Signs
Temp Pulse Resp BP Pulse Ox
98.4 F 63 20 122/83 97
08/30/24 11:12 08/30/24 11:12 08/30/24 11:12 08/30/24 11:12 08/30/24 11:12
Physical Exam
Constitutional: No Acute Distress
Pulmonary: Clear
Gastrointestinal: Soft, Non Tender and Non Distended
Genito-Urinary: Negative CVA Tenderness
Wound: Other (Right middle finger dressing dry)
Objective Data
Lab Data
Lab Results
08/30/24 04:34
08/30/24 04:34
Estimated Creat Clear > 125 ml/min 08/30/24 04:34
Total Bilirubin 0.4 mg/dl (0.2-1.3) 08/30/24 04:34
AST 32 U/L (17-59) 08/30/24 04:34
ALT 106 U/L (0-50) H 08/30/24 04:34
Alkaline Phosphatase 214 U/L (38-126) H 08/30/24 04:34
Most recent labs reviewed.
Micro Results:
08/27/24 13:40 Anaerobic Culture - Preliminary
Hand - Right Culture pending. Anaerobic cultures are examined after 3
days incubation. Additional information to follow.
08/27/24 13:40 Wound Culture - Preliminary
Hand - Right Group C Streptococcus
Gram Stain - Preliminary
08/26/24 Right hand XRAY. There is severe soft tissue swelling of the middle finger. There are no radiopaque foreign bodies. There is old healed fracture of the diaphysis of the fifth metacarpal
--- NOTE | 2024-08-30 12:55 | W.PN.UPDATE ---
Update Note
Progress Note Update
Patient seen and examined
He continues with significant swelling, redness and mild drainage.
One suture removed to allow more drainage.
Continue with warm water soaks with diluted Hibiclens
NPO after MN
Will assess tomorrow AM whether he needs additional surgical I&D or not.
--- NOTE | 2024-08-30 13:06 | W.PN.HOSP.TC ---
Today's Communication/Plan
-
Continue ceftriaxone
Ultrasound of the abdomen
Follow labs
Possible I and D again
Assessment / Plan
Assessment / Plan
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 He got his last tetanus shot last year on examination awake alert
Cardiovascular system S1-S2 appreciated
Chest clear to auscultation
Abdomen soft and nontender
Right middle finger edema, wound with mild serosanguineous drainage, redness.
# Right middle finger soft tissue injury possible tenosynovitis
Was on Keflex and Bactrim as outpatient-failed
Status post I&D in the OR by Dr. Hagan 08/27/2024
Cefepime and vancomycin-changed to ceftriaxone-OR culture-Streptococcus
Hibiclens soaks
N.p.o. after midnight for Dr. Hagan to assess to see if patient needs I&D again
# Hyperkalemia likely secondary to ibuprofen and lisinopril-Watch
# Mild hyponatremia
# Mild hyperglycemia hemoglobin A1c 5.8
# Transaminitis -history of cholecystectomy
No right upper quadrant tenderness
Transaminitis improving , routine ultrasound
# Hypertension-continue Norvasc Coreg and lisinopril
If potassium runs high we may need to cut back or stop lisinopril
# Coronary artery disease
History of non-STEMI 2008 with drug-eluting stent to OM 3
Had residual LAD and RCA disease
Continue aspirin/Coreg/lisinopril
# Hyperlipidemia-hold statin with elevated LFTs
# Obesity with a BMI of 42-weight loss needed
# Ex-smoker
# DVT prophylaxis-Lovenox
# Full code
Anticipated Discharge: 24 - 48 hours
Subjective/Interval History
-
Date of Service: August 30, 2024
Objective Data
-
Labs:
Laboratory Results
08/30/24
04:34
WBC 7.9
Hgb 12.2 L
Hct 35.7 L
Plt Count 225
Sodium 135
Potassium 4.6
Chloride 103
Carbon Dioxide 24
BUN 14
Creatinine 0.6 L
Glucose 114 H
Calcium 9.2
Total Bilirubin 0.4
AST 32
ALT 106 H
Alkaline Phosphatase 214 H
Vital Signs:
Vital Signs
Temp Pulse Resp BP Pulse Ox
98.4 F 63 20 122/83 97
08/30/24 11:12 08/30/24 11:12 08/30/24 11:12 08/30/24 11:12 08/30/24 11:12
I&O
08/29/24 08/30/24 08/31/24
06:59 06:59 06:59
Intake Total 3555 / 3555 2435 / 2435
Output Total 500 / 500
Balance 3055 / 3055 2435 / 2435
--- NOTE | 2024-08-30 14:20 | CM ---
Chart reviewed
Remains on IV Abx
Following labs; cultures pending
For Abdominal ultrasound
OT recs - home with outpatient PT
CM will follow for discharge needs
Plan - Anticipate home with out patient OT
[2024-08-30 15:35] VITALS: BP 156/101
[2024-08-30] MEDS: LOVENOX 40 MG SC (17:12)
[2024-08-30 23:19] VITALS: BP 124/81
[2024-08-31] VITALS (12 sets, daily range): BP systolic 111–148; BP diastolic 64–108
[2024-08-31 06:37] LABS: Hematocrit 36.1 % (39.0-52.0); Hemoglobin 12.6 g/dL (13.0-18.0); Mean Corp Hgb Conc. 34.9 g/dL (33.0-37.0); Mean Corpuscular Hgb 32.8 pg (27.0-31.0); Platelet Count 229 10^3/uL (130-400); Red Blood Cell Count 3.84 10^6/uL (4.70-6.10); White Blood Cell Count 8.4 10^3/uL (4.8-10.8)
[2024-08-31 06:58] LABS: ALT (SGPT) 96 U/L (0-50); AST (SGOT) 32 U/L (17-59); Albumin 3.9 g/dl (3.5-5.0); Alkaline Phosphatase 202 U/L (38-126); Blood Urea Nitrogen 15 mg/dl (9-20); Calcium 9.3 mg/dl (8.4-10.2); Carbon Dioxide 23 mmol/L (22-30); Chloride 103 mmol/L (98-107); Estimated Creatinine Clearance > 125 ml/min; Glucose 101 mg/dl (70-99); Sodium 136 mmol/L (135-145); Total Bilirubin 0.4 mg/dl (0.2-1.3); Total Protein 8.1 g/dl (6.3-8.2); eGFR > 60.00
[2024-08-31 07:27] LABS: Hepatitis B Surface Antigen Negative (Negative)
[2024-08-31 07:30] LABS: Hepatitis A IgM Antibody Negative (Negative)
[2024-08-31 07:44] LABS: Hepatitis A Antibody, Total Positive (Negative); Hepatitis B Surface Antibody Negative; Hepatitis C Antibody Negative (Negative)
--- NOTE | 2024-08-31 08:04 | W.PN.UPDATE ---
Update Note
Progress Note Update
Patient seen and examined
Right middle finger flexor tenosynovitis
Minimal improvements since the first I&D and IV abx
There are necrotic areas at the middle phalanx level of the middle finger.
Good perfusion distally.
Will proceed with repeat I&D today
Consent in chart and OR notified
[2024-08-31] MEDS: COREG 25 MG PO ×2 (08:56→20:06)
[2024-08-31] MEDS: COLACE PO ×3 (08:56→20:07)
[2024-08-31] MEDS: ASPIRIN ENTERIC COATED 325 MG PO (08:56)
[2024-08-31] MEDS: ZESTRIL 20 MG PO (08:57)
[2024-08-31] MEDS: SENOKOT PO ×3 (08:57→20:07)
[2024-08-31] MEDS: VISBIOME 2 CAP PO (08:57)
[2024-08-31] MEDS: NORVASC 5 MG PO (08:58)
[2024-08-31] MEDS: CELEBREX 100 MG PO ×2 (08:59→20:05)
--- NOTE | 2024-08-31 09:16 | W.PN.ID1 ---
Date of Service
Date of Service: August 31, 2024
Today's Communication
-Continue IV Ceftriaxone.
- Add metronidazole pending anaerobic cx.
Assessment / Plan
# Right middle finger SSTI, flexor tenosynovitis after injury between 2 plywoods
- Up to date with tetanus vaccine
- 08/27 OR I+D
- OR cx Group C strep, anaerobic cx pending
- For repeat I+D today.
-Continue IV Ceftriaxone.
- Add metronidazole pending anaerobic cx.
Chief Complaint
-: Cellulitis
Subjective / Review of Systems
Going back to OR today.
Vital Signs / Physical Exam
Vital Signs
Vital Signs
Temp Pulse Resp BP Pulse Ox
98.3 F 70 16 143/97 96
08/31/24 07:03 08/31/24 08:58 08/31/24 07:03 08/31/24 08:58 08/31/24 07:03
Physical Exam
Constitutional: No Acute Distress and Comfortable
Gastrointestinal: Soft, Non Tender and Non Distended
Wound: Other (Right hand dressing in place)
Neurological: AO x 3
Objective Data
Lab Data
Lab Results
08/31/24 05:09
08/31/24 05:09
Estimated Creat Clear > 125 ml/min 08/31/24 05:09
Total Bilirubin 0.4 mg/dl (0.2-1.3) 08/31/24 05:09
AST 32 U/L (17-59) 08/31/24 05:09
ALT 96 U/L (0-50) H 08/31/24 05:09
Alkaline Phosphatase 202 U/L (38-126) H 08/31/24 05:09
Most recent labs reviewed.
Micro Results:
08/27/24 13:40 Anaerobic Culture - Preliminary
Hand - Right Culture pending. Anaerobic cultures are examined after 3
days incubation. Additional information to follow.
08/27/24 13:40 Wound Culture - Preliminary
Hand - Right Group C Streptococcus
Gram Stain - Preliminary
08/26/24 Right hand XRAY. There is severe soft tissue swelling of the middle finger. There are no radiopaque foreign bodies. There is old healed fracture of the diaphysis of the fifth metacarpal
[2024-08-31] MEDS: FLAGYL 500 MG PO ×2 (09:42→16:25)
[2024-08-31] MEDS: ROCEPHIN 2000 MG IV (09:42)
[2024-08-31] MEDS: STERILE WATER FOR INJECTION 20 ML IV (09:42)
--- NOTE | 2024-08-31 12:34 | W.PN.HOSP.TC ---
Today's Communication/Plan
-
OR today
Assessment / Plan
Assessment / Plan
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 He got his last tetanus shot last year on examination awake alert
Cardiovascular system S1-S2 appreciated
Chest clear to auscultation
Abdomen soft and nontender
Right middle finger edema, wound with mild serosanguineous drainage, redness.
USS- Increased echogenicity in the liver, compatible with underlying hepatocellular disease, which most commonly relates to fatty infiltration of the liver.
# Right middle finger soft tissue injury possible tenosynovitis
Was on Keflex and Bactrim as outpatient-failed
Status post I&D in the OR by Dr. Hagan 08/27/2024
Initially started on Cefepime and vancomycin-changed to ceftriaxone-OR culture-Streptococcus
Hibiclens soaks
OR today for I and D
# Hyperkalemia likely secondary to ibuprofen and lisinopril-Watch
# Mild hyponatremia-Resolved
# Mild hyperglycemia hemoglobin A1c 5.8
# Transaminitis -history of cholecystectomy
No right upper quadrant tenderness
Transaminitis improving , routine ultrasound with Fatty Liver
# Hypertension-continue Norvasc Coreg and lisinopril
If potassium runs high we may need to cut back or stop lisinopril
# Coronary artery disease
History of non-STEMI 2008 with drug-eluting stent to OM 3
Had residual LAD and RCA disease
Continue aspirin/Coreg/lisinopril
# Hyperlipidemia-hold statin with elevated LFTs
# Obesity with a BMI of 42-weight loss needed
# Ex-smoker
# DVT prophylaxis-Lovenox
# Full code
Anticipated Discharge: 24 - 48 hours
Subjective/Interval History
-
Date of Service: August 31, 2024
Objective Data
-
Labs:
Laboratory Results
08/31/24
05:09
WBC 8.4
Hgb 12.6 L
Hct 36.1 L
Plt Count 229
Sodium 136
Potassium 5.0
Chloride 103
Carbon Dioxide 23
BUN 15
Creatinine 0.5 L
Glucose 101 H
Calcium 9.3
Total Bilirubin 0.4
AST 32
ALT 96 H
Alkaline Phosphatase 202 H
Vital Signs:
Vital Signs
Temp Pulse Resp BP Pulse Ox
98.3 F 70 16 143/97 96
08/31/24 07:03 08/31/24 08:58 08/31/24 07:03 08/31/24 08:58 08/31/24 07:03
I&O
08/30/24 08/31/24 09/01/24
06:59 06:59 06:59
Intake Total 2435 / 2435 720 / 720
Balance 2435 / 2435 720 / 720
--- NOTE | 2024-08-31 12:55 | PN.CDI ---
CDI
- -
CDI:
Physician Documentation Request
Admit Date: 08/26/24 16:32
Dear Doctor Danya,
Patient admitted for tenosynovitis.
08/27 Op Report: 'Right middle finger flexor tendon sheath incision and debridement...Dissection was carried down, and the flexor tendon sheath was opened proximal to the A1 meet...significant amount of excessive tenosynovitis. This was also
removed with the rongeur...After the flexor tendon sheath was decompressed, the wound was irrigated with copious amount of irrigation solution.'
Could you provide, in the progress notes further clarification regarding the debridement.
Please specify the type of debridement performed:
1. Excisional Debridement - defined as removal by excision of devitalized tissue, necrosis or slough
2. Non-excisional debridement - defined as removal of devitalized tissue, necrosis or slough by such methods as irrigation, brushing, scrubbing or washing.
If the debridement was excisional, please also include:
1. Type of instrument used (#11 blade, #15 blade etc.)
2. What was excised (necrotic tissue, gangrenous tissue, slough etc.)
For excisional or non-excisional, please also include:
1. Depth of debridement (skin, subcutaneous tissue, fascia, muscle, bone etc)
2. Size and appearance of the wound (L, W, D, color of wound, drainage)
Use of terms such as suspected, likely, concern for, or probable (associated with a specific diagnosis that is being evaluated, monitored, or treated as if it exists) are acceptable and can be coded in the inpatient setting, when documented at the
time of discharge.
Thank you,
Ivana Huynh RN, BSN
CDI Specialist
Available via [place] text
Please use your independent medical judgment in providing your response.
--- NOTE | 2024-08-31 14:14 | W.IMMPOSTOP ---
Surgical Immed Post Op Note
-
Primary Surgeon: Danya
Pre-op Diagnosis: Right middle finger flexor tenosynovitis
Post-op Diagnosis: Same
Procedure Performed: Right middle finger I&D
Anesthesia Type: General
Specimen / Cultures: None
Estimated Blood Loss: 2cc
Complications: None
Plan:
- Continue with IV abx
- Dressing change/ removal of packing on AM and start warm water soaks with diluted Hibiclens. Encourage ROM of the fingers
- Currently, no plan for further I&D
Dictated [id number]
[2024-08-31] MEDS: SUBLIMAZE 50 MCG IV (14:50)
--- NOTE | 2024-08-31 15:36 | CM ---
Addendum entered by Suzette Melgar 08/31/24 15:44:
Patient seen at bedside and confirmed that he would talk to physician about home OT needs and script.
Original Note:
Patient had surgery today. CM will follow for discharge planning needs.
Plan; follow for possible home outpatient OT needs
[2024-08-31] MEDS: LOVENOX 40 MG SC (17:11)
[2024-08-31] MEDS: ROXICODONE 10 MG PO (20:16)
[2024-09-01] MEDS: FLAGYL 500 MG PO ×3 (00:04→16:39)
[2024-09-01 03:50] VITALS: BP 128/78
[2024-09-01 06:45] VITALS: BP 121/77
[2024-09-01 06:45] LABS: Hematocrit 36.2 % (39.0-52.0); Hemoglobin 12.5 g/dL (13.0-18.0); Mean Corp Hgb Conc. 34.5 g/dL (33.0-37.0); Mean Corpuscular Hgb 31.8 pg (27.0-31.0); Mean Corpuscular Volume 92.1 fL (80.0-94.0); Mean Platelet Volume 11.9 fL (7.4-10.4); Platelet Count 245 10^3/uL (130-400); Red Blood Cell Count 3.93 10^6/uL (4.70-6.10); Red Cell Dist. Width 12.5 % (11.5-14.5); White Blood Cell Count 15.6 10^3/uL (4.8-10.8)
[2024-09-01 07:14] LABS: ALT (SGPT) 102 U/L (0-50); AST (SGOT) 36 U/L (17-59); Albumin 3.9 g/dl (3.5-5.0); Alkaline Phosphatase 199 U/L (38-126); Blood Urea Nitrogen 19 mg/dl (9-20); Calcium 9.3 mg/dl (8.4-10.2); Carbon Dioxide 24 mmol/L (22-30); Chloride 100 mmol/L (98-107); Estimated Creatinine Clearance > 125 ml/min; Glucose 141 mg/dl (70-99); Potassium 5.1 mmol/L (3.5-5.1); Sodium 136 mmol/L (135-145); Total Bilirubin 0.4 mg/dl (0.2-1.3); eGFR > 60.00
--- NOTE | 2024-09-01 08:18 | W.PN.ORTHO ---
Today's Communication / Plan
-
48 yo M POD1 Right middle finger flexor tendon sheath and right middle finger incision and debridement under the direction of Dr. Hagan
--Dressing to remain in place until tomorrow 09/02. Dressing may be removed tomorrow morning, and we will resume warm water soaks with diluted hibicleans.
--Once dressing is removed, encourage ROM of the fingers.
--Continue IV abx. Currently ceftriaxone and metronidazole.
--Pain control prn. Ice and elevation for edema control.
--Orthopedics will continue to follow along.
Assessment
.
Distal Motor Intact: Yes
Dressing:
Clean, dry and intact.
Plan
.
Surgery / Date: Right middle finger I & D 09/01 [place]
Activity:
Out of bed.
PT/OT
Subjective
.
.:
Mr. Schroeder is POD1 following his Right middle finger flexor tendon sheath and right middle finger incision and debridement performed by Dr. Hagan on 08/31/2024. He is sitting comfortably in bed this morning. He does report his pain is improved, and he
reports he is able to wiggle the finger without much discomfort. He has no questions or concerns at this time.
Vital Signs and Labs
.
Vital Signs and Labs:
Lab Results
09/01/24 05:20
09/01/24 05:20
Temp Pulse Resp BP Pulse Ox
98.4 F 67 16 121/77 98
09/01/24 06:45 09/01/24 06:45 09/01/24 06:45 09/01/24 06:45 09/01/24 06:45
Physical Exam
-
Directed exam of the right upper extremity reveals surgical dressing clean, dry and intact. There is some ecchymosis surrounding the distal aspect of the middle finger, otherwise good color of fingers. Sensation to light touch about the distal
aspect of the middle finger slightly diminished. Capillary refill <2 seconds.
[2024-09-01] MEDS: COLACE PO ×2 (08:30→21:36)
[2024-09-01] MEDS: COREG 25 MG PO ×2 (08:30→21:38)
[2024-09-01] MEDS: ASPIRIN ENTERIC COATED 325 MG PO (08:30)
[2024-09-01] MEDS: CELEBREX 100 MG PO ×2 (08:30→21:38)
[2024-09-01] MEDS: SENOKOT PO ×2 (08:31→21:36)
[2024-09-01] MEDS: ZESTRIL 20 MG PO (08:31)
[2024-09-01] MEDS: NORVASC 5 MG PO (08:31)
[2024-09-01] MEDS: VISBIOME 2 CAP PO (08:31)
--- NOTE | 2024-09-01 10:20 | W.PN.ID1 ---
Date of Service
Date of Service: September 01, 2024
Today's Communication
Continue IV Ceftriaxone 2 g IV q24.
Plan to treat 4 week course through 09/20/24.
Infusion sheet submitted to case management associate.
Ordered midline.
Continue metronidazole 500mg po tid (d2) pending anaerobic cx.
Assessment / Plan
# Right middle finger SSTI, flexor tenosynovitis after injury between 2 plywoods
- Up to date with tetanus vaccine
- 08/27 OR I+D
- OR cx Group C strep, anaerobic cx pending
- s/p repeat I+D 08/31/24
-Continue IV Ceftriaxone 2 g IV q24.
Plan to treat 4 week course through 09/20/24.
Infusion sheet submitted to case management associate.
Ordered midline.
- Continue metronidazole 500mg po tid (d2) pending anaerobic cx.
Chief Complaint
-: Cellulitis
Subjective / Review of Systems
No specific issues.
Vital Signs / Physical Exam
Vital Signs
Vital Signs
Temp Pulse Resp BP Pulse Ox
98.4 F 67 16 121/77 98
09/01/24 06:45 09/01/24 08:30 09/01/24 06:45 09/01/24 08:30 09/01/24 06:45
Physical Exam
Constitutional: No Acute Distress and Comfortable
Cardiovascular: Regular Rate and S1/S2
Pulmonary: Clear
Gastrointestinal: Soft, Non Tender and Non Distended
Extremities: Negative Edema
Wound: Other (Right hand dressing dry)
Neurological: AO x 3
Objective Data
Lab Data
Lab Results
09/01/24 05:20
09/01/24 05:20
Estimated Creat Clear > 125 ml/min 09/01/24 05:20
Total Bilirubin 0.4 mg/dl (0.2-1.3) 09/01/24 05:20
AST 36 U/L (17-59) 09/01/24 05:20
ALT 102 U/L (0-50) H 09/01/24 05:20
Alkaline Phosphatase 199 U/L (38-126) H 09/01/24 05:20
Most recent labs reviewed.
Micro Results:
08/27/24 13:40 Anaerobic Culture - Preliminary
Hand - Right Culture pending. Anaerobic cultures are examined after 3
days incubation. Additional information to follow.
08/27/24 13:40 Wound Culture - Preliminary
Hand - Right Group C Streptococcus
Gram Stain - Preliminary
08/26/24 Right hand XRAY. There is severe soft tissue swelling of the middle finger. There are no radiopaque foreign bodies. There is old healed fracture of the diaphysis of the fifth metacarpal
Care Review
Plan reviewed with: Physician (Dr. Bunn)
[2024-09-01] MEDS: FLUSH (NSS) 2 FLUSH IV (10:38)
[2024-09-01] MEDS: ROCEPHIN 2000 MG IV (10:38)
[2024-09-01] MEDS: STERILE WATER FOR INJECTION 20 ML IV (10:38)
--- NOTE | 2024-09-01 11:22 | CM ---
CM reviewed chart, patient seen bedside, discussed patient will require 4 weeks IV antibiotics, scripted provided by I.D. Patient provided CM with [employer] insurance information: [employer] Claim# [id number], Elvira Jean Enrico
Comp Specialist [phone], Fax- . CM spoke with Zainab from [facility], provided [employer] information, script, clinical information faxed to [facility] at [phone]. CM will continue to follow for all discharge
planning needs.
Plan; will require IV antibiotics at home, awaiting [facility]
[2024-09-01 11:32] VITALS: BP 118/76
--- NOTE | 2024-09-01 12:53 | W.PN.HOSP.TC ---
Today's Communication/Plan
-
Await for final culture data
Await for anaerobes
IV antibiotics on discharge
Wound care per orthopedic
Assessment / Plan
Assessment / Plan
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 He got his last tetanus shot last year on examination awake alert
USS- Increased echogenicity in the liver, compatible with underlying hepatocellular disease, which most commonly relates to fatty infiltration of the liver.
# Right middle finger soft tissue injury possible tenosynovitis
Was on Keflex and Bactrim as outpatient-failed
Status post I&D in the OR by Dr. Hagan 08/27/2024
status post right middle finger flexor tendon sheath and right middle finger incision and debridement on 08/31/24
Initially started on Cefepime and vancomycin-changed to ceftriaxone-OR culture-Streptococcus
Hibiclens soaks
On pain leukocyte ptosis likely secondary to postop stress reactive. Monitor WBC and temperature curve for now.
Plan for IV ceftriaxone by ID. Remains on p.o. Flagyl. Midline ordered.
Wound care management per orthopedic
# Hyperkalemia likely secondary to ibuprofen and lisinopril-Watch
# Mild hyponatremia-Resolved
# Mild hyperglycemia hemoglobin A1c 5.8
# Transaminitis -history of cholecystectomy
No right upper quadrant tenderness
Transaminitis improving , routine ultrasound with Fatty Liver
# Hypertension-continue Norvasc Coreg and lisinopril
If potassium runs high we may need to cut back or stop lisinopril
# Coronary artery disease
History of non-STEMI 2008 with drug-eluting stent to OM 3
Had residual LAD and RCA disease
Continue aspirin/Coreg/lisinopril
# Hyperlipidemia-hold statin with elevated LFTs. Will need follow-up outpatient with chargeback specialist and primary doctor.
# Morbid obesity due to excess calories affects all aspects of medical care.
# Ex-smoker
# DVT prophylaxis-Lovenox
# Full code
Discussed with infectious disease
Anticipated Discharge: > 48 hours
Subjective/Interval History
-
Date of Service: September 01, 2024
States of intermittent right hand pain as a nerve block is starting to wean off
Able to wiggle fingers right hand
Objective Data
-
Labs:
Laboratory Results
09/01/24
05:20
WBC 15.6 H
Hgb 12.5 L
Hct 36.2 L
Plt Count 245
Sodium 136
Potassium 5.1
Chloride 100
Carbon Dioxide 24
BUN 19
Creatinine 0.6 L
Glucose 141 H
Calcium 9.3
Total Bilirubin 0.4
AST 36
ALT 102 H
Alkaline Phosphatase 199 H
Vital Signs:
Vital Signs
Temp Pulse Resp BP Pulse Ox
98.5 F 71 18 118/76 96
09/01/24 11:32 09/01/24 11:32 09/01/24 11:32 09/01/24 11:32 09/01/24 11:32
I&O
08/31/24 09/01/24 09/02/24
06:59 06:59 06:59
Intake Total 720 / 720 1680 / 1680
Output Total 600 / 600
Balance 720 / 720 1080 / 1080
Physical Exam
-
General: Well Developed, No Apparent Distress and Morbidly Obese
HEENT: Normocephalic, Atraumatic and Moist Mucous Membranes
Respiratory: Clear to Auscultation
Cardiac: Regular Rhythm and S1/S2; Negative Murmur, Rub or Gallop
GI: Soft, Nontender, Nondistended and Normal Bowel Sounds; Negative Organomegaly
Rectal: Deferred by Provider
Musculoskeletal: No Clubbing, No Cyanosis and No Edema
Skin: Other (Right hand covered in gauze wrap and Manuel wrap per orthopedic.); Negative Rash
Neuro: Awake, AO x 3 and Nonfocal/Grossly Intact
Psych: Calm
Data Reviewed
-
Total Time Spent with Patient (in minutes): 55
[2024-09-01 14:19] VITALS: BP 124/79
[2024-09-01] MEDS: LOVENOX SC (18:18)
[2024-09-01 23:05] VITALS: BP 113/75
[2024-09-02] MEDS: FLAGYL 500 MG PO ×2 (00:49→08:23)
[2024-09-02 05:57] LABS: % Basophils 0.6 % (0-2); % Eosinophils 1.1 % (0-6); % Immature Granulocytes 1.6 % (0-0.5); % Lymphocytes 8.1 % (20.5-51.1); % Monocytes 7.3 % (1.7-9.3); % Neutrophils 81.3 % (42.2-75.2); Absolute Basophils 0.1 10^3/uL (0-0.2); Absolute Eosinophils 0.1 10^3/uL (0-0.7); Absolute Immature Granulocytes 0.2 10^3/uL (0-0.05); Absolute Monocytes 0.9 10^3/uL (0.1-0.6); Absolute Neutrophils 10.4 10^3/uL (1.4-6.5); Hematocrit 34.2 % (39.0-52.0); Mean Corp Hgb Conc. 35.1 g/dL (33.0-37.0); Mean Corpuscular Hgb 32.5 pg (27.0-31.0); Mean Corpuscular Volume 92.7 fL (80.0-94.0); Mean Platelet Volume 11.7 fL (7.4-10.4); Nucleated Red Blood Cells % 0 % (-); Platelet Count 216 10^3/uL (130-400); Red Blood Cell Count 3.69 10^6/uL (4.70-6.10); Red Cell Dist. Width 12.9 % (11.5-14.5); White Blood Cell Count 12.8 10^3/uL (4.8-10.8)
[2024-09-02 06:10] LABS: Blood Urea Nitrogen 24 mg/dl (9-20); Calcium 9.2 mg/dl (8.4-10.2); Carbon Dioxide 25 mmol/L (22-30); Chloride 104 mmol/L (98-107); Estimated Creatinine Clearance > 125 ml/min; Glucose 104 mg/dl (70-99); Potassium 4.4 mmol/L (3.5-5.1); Sodium 137 mmol/L (135-145); eGFR > 60.00
--- NOTE | 2024-09-02 07:19 | W.PN.ORTHO ---
Today's Communication / Plan
-
Light dressing
Start Hibiclens soaks 20 minutes 3 times a day
Dr. Hagan to evaluate him tomorrow
Elevation to control edema
Antibiotics per ID (ceftriaxone/Flagyl)
Appreciate medical team's input
Assessment
.
Dressing:
Clean, dry and intact.
Plan
.
Surgery / Date: Right middle finger I & D 09/01 D[facility]
Activity:
Out of bed.
PT/OT
Subjective
.
.:
Patient resting comfortably.
Vital Signs and Labs
.
Vital Signs and Labs:
Lab Results
09/02/24 05:21
09/02/24 05:21
Temp Pulse Resp BP Pulse Ox
98.7 F 116 16 113/75 96
09/01/24 23:05 09/01/24 23:05 09/01/24 23:05 09/01/24 23:05 09/01/24 23:05
+Group C Streptococcus
Physical Exam
-
Right hand dressing removed. Edema and ecchymosis noted. Wound packing removed x 2. He is able to flex and extend finger but obviously motion is limited. Sensation dulled around the tip of the finger. Finger is warm to touch and with the
ecchymosis difficult to access capillary fill. New dressing applied.
[2024-09-02 08:10] VITALS: BP 131/91
[2024-09-02] MEDS: CELEBREX 100 MG PO ×2 (08:21→20:41)
[2024-09-02] MEDS: ASPIRIN ENTERIC COATED 325 MG PO (08:21)
[2024-09-02] MEDS: COLACE PO ×2 (08:22→20:41)
[2024-09-02] MEDS: ZESTRIL 20 MG PO (08:22)
[2024-09-02] MEDS: SENOKOT PO ×2 (08:22→20:42)
[2024-09-02] MEDS: NORVASC 5 MG PO (08:22)
[2024-09-02] MEDS: VISBIOME 2 CAP PO (08:22)
[2024-09-02] MEDS: COREG 25 MG PO ×2 (08:23→20:42)
--- NOTE | 2024-09-02 10:11 | W.PN.ID1 ---
Date of Service
Date of Service: September 02, 2024
Today's Communication
DC metronidazole.
Continue ceftriaxone.
Assessment / Plan
# Right middle finger SSTI, flexor tenosynovitis after injury between 2 plywoods
# Leukocytosis trending down
- Up to date with tetanus vaccine
- 08/27 OR I+D
- OR cx Group C strep, anaerobic cx pending
- s/p repeat I+D 08/31/24
-Continue IV Ceftriaxone 2 g IV q24 through 09/20/24
Infusion sheet submitted to telephonic nurse case manager.
- midline in place
- Discontinue metronidazole 500mg po tid (d3) ; no anaerobe isolated
Chief Complaint
-: Cellulitis
Subjective / Review of Systems
No complaints
Vital Signs / Physical Exam
Vital Signs
Vital Signs
Temp Pulse Resp BP Pulse Ox
99.2 F 69 16 131/91 98
09/02/24 08:10 09/02/24 08:23 09/02/24 08:10 09/02/24 08:23 09/02/24 08:10
Physical Exam
Constitutional: No Acute Distress and Comfortable
Cardiovascular: Regular Rate and S1/S2
Pulmonary: Clear
Gastrointestinal: Soft, Non Tender and Non Distended
Extremities: Negative Edema
Wound: Other (Right hand dressing dry)
Neurological: AO x 3
Lines: Other (LUE: midline in place)
Objective Data
Lab Data
Lab Results
09/02/24 05:21
09/02/24 05:21
Estimated Creat Clear > 125 ml/min 09/02/24 05:21
Total Bilirubin 0.4 mg/dl (0.2-1.3) 09/01/24 05:20
AST 36 U/L (17-59) 09/01/24 05:20
ALT 102 U/L (0-50) H 09/01/24 05:20
Alkaline Phosphatase 199 U/L (38-126) H 09/01/24 05:20
Most recent labs reviewed.
Micro Results:
08/27/24 13:40 Wound Culture - Final
Hand - Right Group C Streptococcus
Gram Stain - Final
08/27/24 13:40 Anaerobic Culture - Final
Hand - Right NO ANAEROBES ISOLATED
08/26/24 Right hand XRAY. There is severe soft tissue swelling of the middle finger. There are no radiopaque foreign bodies. There is old healed fracture of the diaphysis of the fifth metacarpal
--- NOTE | 2024-09-02 10:23 | W.PN.HOSP.TC ---
Today's Communication/Plan
-
Dispo-home pending IV antibiotics set up completion. CM aware. Medically stable.
Assessment / Plan
Assessment / Plan
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 He got his last tetanus shot last year on examination awake alert
USS- Increased echogenicity in the liver, compatible with underlying hepatocellular disease, which most commonly relates to fatty infiltration of the liver.
# Right middle finger soft tissue injury possible tenosynovitis
Was on Keflex and Bactrim as outpatient-failed
Status post I&D in the OR by Dr. Hagan 08/27/2024
status post right middle finger flexor tendon sheath and right middle finger incision and debridement on 08/31/24
Initially started on Cefepime and vancomycin-changed to ceftriaxone-OR culture-Streptococcus
Hibiclens soaks
On pain leukocyte ptosis likely secondary to postop stress reactive. Monitor WBC and temperature curve for now.
Plan for IV ceftriaxone by ID till 09/20/24. Status post midline. And cultures negative. DC Flagyl.
Wound care management per orthopedic recs- Hibiclens soaks 20 minutes 3 times a day
# Hyperkalemia likely secondary to ibuprofen and lisinopril-Watch
# Mild hyponatremia-Resolved
# Mild hyperglycemia hemoglobin A1c 5.8
# Transaminitis -history of cholecystectomy
No right upper quadrant tenderness
Transaminitis improving , routine ultrasound with Fatty Liver
OP GI f/u.
# Hypertension-continue Norvasc Coreg and lisinopril
If potassium runs high we may need to cut back or stop lisinopril
# Coronary artery disease
History of non-STEMI 2008 with drug-eluting stent to OM 3
Had residual LAD and RCA disease
Continue aspirin/Coreg/lisinopril
# Hyperlipidemia-hold statin with elevated LFTs. Will need follow-up outpatient with distance learning technician and primary doctor.
# Morbid obesity due to excess calories affects all aspects of medical care.
# Ex-smoker
# DVT prophylaxis-Lovenox
# Full code
Dispo-home pending IV antibiotics set up completion. CM aware. Medically stable.
Anticipated Discharge: Within 24 hours
Subjective/Interval History
-
Date of Service: September 02, 2024
States of pain in fingers during Hibiclens soaks
Able to wiggle fingers without any difficulty
Objective Data
-
Labs:
Laboratory Results
09/02/24
05:21
WBC 12.8 H
Hgb 12.0 L
Hct 34.2 L
Plt Count 216
Sodium 137
Potassium 4.4
Chloride 104
Carbon Dioxide 25
BUN 24 H
Creatinine 0.6 L
Glucose 104 H
Calcium 9.2
Vital Signs:
Vital Signs
Temp Pulse Resp BP Pulse Ox
99.2 F 69 16 131/91 98
09/02/24 08:10 09/02/24 08:23 09/02/24 08:10 09/02/24 08:23 09/02/24 08:10
I&O
09/01/24 09/02/24 09/03/24
06:59 06:59 06:59
Intake Total 1680 / 1680 1500 / 1500
Output Total 600 / 600
Balance 1080 / 1080 1500 / 1500
Physical Exam
-
General: Well Developed, No Apparent Distress and Morbidly Obese
HEENT: Normocephalic, Atraumatic and Moist Mucous Membranes
Respiratory: Clear to Auscultation
Cardiac: Regular Rhythm and S1/S2; Negative Murmur, Rub or Gallop
GI: Soft, Nontender, Nondistended and Normal Bowel Sounds; Negative Organomegaly
Rectal: Deferred by Provider
Musculoskeletal: No Clubbing, No Cyanosis and No Edema
Skin: Other (Right hand covered in gauze wrap and Manuel wrap per orthopedic.); Negative Rash
Neuro: Awake, AO x 3 and Nonfocal/Grossly Intact
Psych: Calm
[2024-09-02] MEDS: STERILE WATER FOR INJECTION 20 ML IV (10:46)
[2024-09-02] MEDS: ROCEPHIN 2000 MG IV (10:47)
--- NOTE | 2024-09-02 12:43 | CM ---
Addendum entered by Maddy Zhou 09/02/24 15:27:
Spoke with Zainab from [facility]. Per Zainab [facility] nurse Raf to provide teaching to pt/spouse tomorrow at 11AM
Updated pts RN - Clarita
plan - anticipate home with [facility] when medically ready
Original Note:
Chart reviewed. Met with pt at bedside
Spoke with Zainab from [facility] - services approved through [facility]. Notified of anticipated discharge date on Monday 09/04
Per Zainab will speak with pt/spouse to arrange teaching
Faxed Midline info to [facility]
Spoke with pt - aware of plan
Plan - anticipate home with [facility] when medically ready
[2024-09-02] MEDS: ROXICODONE 5 MG PO (13:11)
[2024-09-02 15:13] VITALS: BP 148/85
[2024-09-02] MEDS: LOVENOX SC (18:28)
[2024-09-02] MEDS: ROXICODONE 10 MG PO (21:17)
[2024-09-02 23:15] VITALS: BP 116/78
[2024-09-03 04:25] LABS: % Basophils 0.6 % (0-2); % Eosinophils 2.9 % (0-6); % Immature Granulocytes 1.6 % (0-0.5); % Lymphocytes 8.2 % (20.5-51.1); % Monocytes 9.1 % (1.7-9.3); % Neutrophils 77.6 % (42.2-75.2); Absolute Basophils 0.1 10^3/uL (0-0.2); Absolute Eosinophils 0.3 10^3/uL (0-0.7); Absolute Immature Granulocytes 0.2 10^3/uL (0-0.05); Absolute Lymphocytes 0.8 10^3/uL (1.2-3.4); Absolute Monocytes 0.9 10^3/uL (0.1-0.6); Absolute Neutrophils 7.5 10^3/uL (1.4-6.5); Hematocrit 34.5 % (39.0-52.0); Hemoglobin 11.7 g/dL (13.0-18.0); Mean Corp Hgb Conc. 33.9 g/dL (33.0-37.0); Mean Corpuscular Hgb 31.5 pg (27.0-31.0); Mean Corpuscular Volume 92.7 fL (80.0-94.0); Mean Platelet Volume 11.5 fL (7.4-10.4); Nucleated Red Blood Cells % 0 % (-); Platelet Count 191 10^3/uL (130-400); Red Blood Cell Count 3.72 10^6/uL (4.70-6.10); White Blood Cell Count 9.6 10^3/uL (4.8-10.8)
[2024-09-03 04:46] LABS: Blood Urea Nitrogen 24 mg/dl (9-20); Calcium 9.1 mg/dl (8.4-10.2); Carbon Dioxide 23 mmol/L (22-30); Chloride 105 mmol/L (98-107); Estimated Creatinine Clearance > 125 ml/min; Glucose 97 mg/dl (70-99); Potassium 4.5 mmol/L (3.5-5.1); Sodium 137 mmol/L (135-145); eGFR > 60.00
--- NOTE | 2024-09-03 06:06 | W.PN.ORTHO ---
Today's Communication / Plan
-
Light dressing
Start Hibiclens soaks 20 minutes 3 times a day
Elevation to control edema
Antibiotics per ID (ceftriaxone/Flagyl)
Appreciate medical team's input
Ortho surg will continue to follow
Assessment
.
Dressing:
Clean, dry and intact.
Plan
.
Surgery / Date: Right middle finger I & D 08/27, 08/31 Dr. Hagan
Activity:
Out of bed.
PT/OT
Subjective
.
.:
Patient resting comfortably. Reports pain similar to yesterday
Vital Signs and Labs
.
Vital Signs and Labs:
Lab Results
09/03/24 04:04
09/03/24 04:04
Temp Pulse Resp BP Pulse Ox
97.9 F 61 20 116/78 97
09/02/24 23:15 09/02/24 23:15 09/02/24 23:15 09/02/24 23:15 09/02/24 23:15
Physical Exam
-
Right hand dressing removed. Edema and ecchymosis noted with dry tissue, loose approximated incisions as placed; no active purulence. He is able to flex and extend finger but obviously motion is limited. Sensation dulled around the tip of the
finger. Finger is warm to touch and with the ecchymosis difficult to access capillary fill. Set up for soaks by RN
[2024-09-03 07:10] VITALS: BP 137/95
--- NOTE | 2024-09-03 07:31 | W.PN.HOSP.TC ---
Today's Communication/Plan
-
await ortho recs
IV abx teaching
check lfts
start dispo
Assessment / Plan
Assessment / Plan
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 He got his last tetanus shot last year on examination awake alert
USS- Increased echogenicity in the liver, compatible with underlying hepatocellular disease, which most commonly relates to fatty infiltration of the liver.
# Right middle finger soft tissue injury possible tenosynovitis
Was on Keflex and Bactrim as outpatient-failed
Status post I&D in the OR by Dr. Hagan 08/27/2024
status post right middle finger flexor tendon sheath and right middle finger incision and debridement on 08/31/24
Initially started on Cefepime and vancomycin-changed to ceftriaxone-OR culture-Streptococcus
Hibiclens soaks
Leukocytosis resolved
Plan for IV ceftriaxone by ID till 09/20/24. Status post midline. And cultures negative. DC Flagyl.
Wound care management per orthopedic recs- Hibiclens soaks 20 minutes 3 times a day
# Hyperkalemia likely secondary to ibuprofen and lisinopril-Watch
# Mild hyponatremia-Resolved
# Mild hyperglycemia hemoglobin A1c 5.8
# Transaminitis -history of cholecystectomy
No right upper quadrant tenderness
Transaminitis improving , routine ultrasound with Fatty Liver
OP GI f/u.
# Hypertension-continue Norvasc Coreg and lisinopril
If potassium runs high we may need to cut back or stop lisinopril
# Coronary artery disease
History of non-STEMI 2008 with drug-eluting stent to OM 3
Had residual LAD and RCA disease
Continue aspirin/Coreg/lisinopril
# Hyperlipidemia-hold statin with elevated LFTs. Will need follow-up outpatient with benefits consulting analyst and primary doctor.
# Morbid obesity due to excess calories affects all aspects of medical care.
# Ex-smoker
# DVT prophylaxis-Lovenox
# Full code
Dispo-Home when cleared by surgical perspective. IV antibiotic teaching today. Already received midline.
Anticipated Discharge: Within 24 hours
Subjective/Interval History
-
Date of Service: September 03, 2024
states of pain fingers during soaking
Objective Data
-
Labs:
Laboratory Results
09/03/24
04:04
WBC 9.6
Hgb 11.7 L
Hct 34.5 L
Plt Count 191
Sodium 137
Potassium 4.5
Chloride 105
Carbon Dioxide 23
BUN 24 H
Creatinine 0.6 L
Glucose 97
Calcium 9.1
Vital Signs:
Vital Signs
Temp Pulse Resp BP Pulse Ox
97.9 F 61 20 116/78 97
09/02/24 23:15 09/02/24 23:15 09/02/24 23:15 09/02/24 23:15 09/02/24 23:15
I&O
09/02/24 09/03/24 09/04/24
06:59 06:59 06:59
Intake Total 1500 / 1500 480 / 480
Balance 1500 / 1500 480 / 480
[2024-09-03] MEDS: ASPIRIN ENTERIC COATED 325 MG PO (08:23)
[2024-09-03] MEDS: VISBIOME 2 CAP PO (08:23)
[2024-09-03] MEDS: ZESTRIL 20 MG PO (08:23)
[2024-09-03] MEDS: NORVASC 5 MG PO (08:24)
[2024-09-03] MEDS: COREG 25 MG PO ×2 (08:24→20:35)
[2024-09-03] MEDS: COLACE PO ×2 (08:24→20:36)
[2024-09-03] MEDS: CELEBREX 100 MG PO ×2 (08:24→20:35)
[2024-09-03] MEDS: SENOKOT PO ×2 (08:24→20:36)
--- NOTE | 2024-09-03 10:12 | W.PN.ID1 ---
Date of Service
Date of Service: September 03, 2024
Today's Communication
Continue IV Ceftriaxone 2 g IV q24 through 09/20/24
Assessment / Plan
# Right middle finger SSTI, flexor tenosynovitis after injury between 2 plywoods
# Leukocytosis trending down
- Up to date with tetanus vaccine
- 08/27 OR I+D
- OR cx Group C strep, anaerobic cx pending
- s/p repeat I+D 08/31/24
-Continue IV Ceftriaxone 2 g IV q24 through 09/20/24
Infusion sheet submitted to test case developer.
- midline in place
- Discontinued metronidazole 500mg po tid (d3) ; no anaerobe isolated
Chief Complaint
-: Cellulitis
Subjective / Review of Systems
No complaints.
Vital Signs / Physical Exam
Vital Signs
Vital Signs
Temp Pulse Resp BP Pulse Ox
97.7 F 64 16 137/95 98
09/03/24 07:10 09/03/24 08:24 09/03/24 07:10 09/03/24 08:24 09/03/24 07:10
Physical Exam
Constitutional: No Acute Distress
Cardiovascular: Regular Rate and S1/S2
Pulmonary: Clear
Gastrointestinal: Soft, Non Tender and Non Distended
Extremities: Negative Edema
Wound: Other (Right hand dressing dry)
Neurological: AO x 3
Lines: Other (LUE: midline in place)
Objective Data
Lab Data
Lab Results
09/03/24 04:04
09/03/24 04:04
Estimated Creat Clear > 125 ml/min 09/03/24 04:04
Total Bilirubin 0.4 mg/dl (0.2-1.3) 09/01/24 05:20
AST 36 U/L (17-59) 09/01/24 05:20
ALT 102 U/L (0-50) H 09/01/24 05:20
Alkaline Phosphatase 199 U/L (38-126) H 09/01/24 05:20
Most recent labs reviewed.
Micro Results:
08/27/24 13:40 Wound Culture - Final
Hand - Right Group C Streptococcus
Gram Stain - Final
08/27/24 13:40 Anaerobic Culture - Final
Hand - Right NO ANAEROBES ISOLATED
08/26/24 Right hand XRAY. There is severe soft tissue swelling of the middle finger. There are no radiopaque foreign bodies. There is old healed fracture of the diaphysis of the fifth metacarpal
[2024-09-03 10:49] LABS: ALT (SGPT) 84 U/L (0-50); AST (SGOT) 30 U/L (17-59); Albumin 3.2 g/dl (3.5-5.0); Alkaline Phosphatase 151 U/L (38-126); Direct Bilirubin 0.3 mg/dl (0.0-0.4); Total Bilirubin 0.5 mg/dl (0.2-1.3); Total Protein 6.7 g/dl (6.3-8.2)
[2024-09-03] MEDS: ROCEPHIN IV (12:01)
[2024-09-03] MEDS: STERILE WATER FOR INJECTION IV (12:02)
--- NOTE | 2024-09-03 13:06 | CM ---
Chart reviewed. Met with pt
Teaching completed for home infusion with pt/ today with [facility]
Plan to deliver meds tomorrow after discharge - pt to receive abx prior to discharge
Plan - home with [facility]
[2024-09-03] MEDS: ROXICODONE 5 MG PO (13:58)
[2024-09-03 14:55] VITALS: BP 129/86
--- NOTE | 2024-09-03 16:15 | W.PN.UPDATE ---
Update Note
Progress Note Update
Patient seen and examined
The right middle finger has much decreased swelling. Infection is being under control
However, there are some areas of necrotic skin.
I placed wound care consult to consider chemical debridement.
We can decrease the frequency of Hibiclens soaks to once a day
I'm ok with him being discharged home after wound care evaluation and I can see him in the office early next week
Antibiotics per infectious disease recommendations
Please call [phone] for appointment.
[2024-09-03] MEDS: STERILE WATER FOR INJECTION 20 ML IV (16:49)
[2024-09-03] MEDS: ROCEPHIN 2000 MG IV (16:49)
--- NOTE | 2024-09-03 16:55 | WOUNDNOTE ---
R MIDDLE FINGER (RANKIN SIDE)
--- NOTE | 2024-09-03 16:57 | WOUNDNOTE ---
R MIDDLE FINGER (RANKIN SIDE)
--- NOTE | 2024-09-03 16:57 | WOUNDNOTE ---
R MIDDLE FINGER (SIDE OF)
--- NOTE | 2024-09-03 16:58 | WOUNDNOTE ---
[facility] RN note: Seen with Dr. Hagan. Patient's R middle finger incision with sutures intact with black necrotic areas mostly on medial side and gardner side. Dr. Hagan requested Santyl ointment. Confirmed daily wound care with Dr. Hagan: Jaycee nicole,
Santyl ointment to necrotic tissue, adaptic, gauze secured loosely with rolled gauze and/or Manuel loosely secured. Dressing applied. Dr. Hagan gave patient a script for Santyl ointment. Patient instructed local care. Some wound care supplies in room.
VN and home IV infusion planned. Patient for possible discharge tomorrow.
[2024-09-03] MEDS: LOVENOX SC (17:18)
[2024-09-03] MEDS: SANTYL OINTMENT 1 APPLIC TOPICAL (20:36)
[2024-09-03] MEDS: ROXICODONE 10 MG PO (20:38)
[2024-09-03 23:05] VITALS: BP 130/67
--- NOTE | 2024-09-04 07:55 | W.PN.UPDATE ---
Update Note
Progress Note Update
Patient was seen this morning. Reports pain is well-controlled not currently taking any medications for it. Discussed outpatient follow-up; Friday works best for the patient at our office on [facility]. Booked with an associated physician
surgical supply assistant in the same office as Dr. Hagan. Will continue with wound care plan until then
[2024-09-04 07:57] VITALS: BP 141/101
[2024-09-04] MEDS: CELEBREX 100 MG PO (09:12)
[2024-09-04] MEDS: COREG 25 MG PO (09:12)
[2024-09-04] MEDS: VISBIOME 2 CAP PO (09:12)
[2024-09-04] MEDS: SENOKOT 17.2 MG PO (09:12)
[2024-09-04] MEDS: COLACE 100 MG PO (09:13)
[2024-09-04] MEDS: ASPIRIN ENTERIC COATED 325 MG PO (09:13)
[2024-09-04] MEDS: ZESTRIL 20 MG PO (09:13)
[2024-09-04] MEDS: NORVASC 5 MG PO (09:13)
[2024-09-04] MEDS: SANTYL OINTMENT 1 APPLIC TOPICAL (09:14)
[2024-09-04] MEDS: ROXICODONE 5 MG PO (09:19)
[2024-09-04 09:28] LABS: Blood Urea Nitrogen 18 mg/dl (9-20); Calcium 9.5 mg/dl (8.4-10.2); Carbon Dioxide 22 mmol/L (22-30); Chloride 104 mmol/L (98-107); Estimated Creatinine Clearance > 125 ml/min; Glucose 172 mg/dl (70-99); Potassium 4.5 mmol/L (3.5-5.1); Sodium 136 mmol/L (135-145); eGFR > 60.00
[2024-09-04 09:50] LABS: % Basophils 0.5 % (0-2); % Eosinophils 4.1 % (0-6); % Immature Granulocytes 1.4 % (0-0.5); % Lymphocytes 8.7 % (20.5-51.1); % Monocytes 6.8 % (1.7-9.3); % Neutrophils 78.5 % (42.2-75.2); Absolute Basophils 0.1 10^3/uL (0-0.2); Absolute Eosinophils 0.4 10^3/uL (0-0.7); Absolute Immature Granulocytes 0.1 10^3/uL (0-0.05); Absolute Lymphocytes 0.8 10^3/uL (1.2-3.4); Absolute Monocytes 0.6 10^3/uL (0.1-0.6); Absolute Neutrophils 7.3 10^3/uL (1.4-6.5); Hematocrit 38.4 % (39.0-52.0); Hemoglobin 13.2 g/dL (13.0-18.0); Mean Corp Hgb Conc. 34.4 g/dL (33.0-37.0); Mean Corpuscular Hgb 32.3 pg (27.0-31.0); Mean Corpuscular Volume 93.9 fL (80.0-94.0); Mean Platelet Volume 12.2 fL (7.4-10.4); Nucleated Red Blood Cells % 0 % (-); Platelet Count 213 10^3/uL (130-400); Red Blood Cell Count 4.09 10^6/uL (4.70-6.10); Red Cell Dist. Width 13.2 % (11.5-14.5); White Blood Cell Count 9.4 10^3/uL (4.8-10.8)
--- NOTE | 2024-09-04 13:56 | W.DCSUMMARY ---
Discharge Summary
Discharge Data
Date of Admission: 08/26/24
Date of Discharge: 09/04/24
-
Pending Results: No
Hospital Course
Discharging Physician : Dr. Shelby Guzman
Disposition :
Primary care physician :
Principal Discharge diagnosis :
1. Flexor tenosynovitis of the right middle finger
2. Right middle finger skin and soft tissue infection status post I&D x 2, culture grew group C streptococcus,
3. Hyperkalemia: Resolved
4. Hyponatremia
5. Mild hyperglycemia with A1c is 5.8
6. Transaminitis with history of cholecystectomy, likely secondary to fatty liver all of the source of AST and ALT elevation may be right middle finger traumatic injury and tenosynovitis
7. Hypertension
8. Coronary artery disease status post drug-eluting stent to OM 3 with residual LAD and RCA disease
9. Dyslipidemia
10. Ex-smoker
History of present illness:
48-year-old male with past history of hypertension hyperlipidemia presenting to the emergency department with concerns of right middle finger swelling and discomfort over the past few days. Patient injured his right middle finger between the
[place] on Friday. He did not notice any skin breakdown at that time. But noticed bloody blisters and few days. He noticed swelling on his finger. His blister popped. saw his primary care doctor 2 days ago and was started on Keflex as well as
Bactrim and has been taking this as prescribed but has had worsening symptoms. Patient denied any fever, chills, headache, dizzy, chest pain, short of breath. Patient denied abdominal pain, nausea, vomiting or diarrhea. Patient denied dysuria
hematuria
Patient is ordered antibiotics in ER. Admitted for further evaluation
Hospital Course :
So patient presented to the hospital days after traumatic injury as a fingerstick between [facility], he works in a [employer].
Initially had no issue and did not see any splinting.
Looks like next day even he had a picture shows some hematoma under the skin look like that broke off, saw primary care physician and given courses of antibiotic including Keflex then followed by Bactrim, the swelling and redness and pain continued
to get worse therefore decided to come to the hospital.
In the ER concern was for tenosynovitis and skin necrosis, seen by infectious disease and Ortho, taken to the OR for I&D and culture were taken which grew group C streptococcus.
He was started on a broad-spectrum antibiotic including Vanco and cefepime initially but eventually narrowed down to Rocephin 2 g IV daily which is going to be continued per recommendation of the infectious disease till September 20, 2024.
He was improvement of the right middle finger but still have good amount of swelling and redness and loss skin but according to the patient is much better than before and he was cleared by Ortho and infectious disease for discharge home. He will
continue IV antibiotic and wound management at home.
Wound care management per orthopedic trisha- Jaycee soaks 20 minutes 3 times a day also he is getting Centinel ointment.
Advised about follow-up as per discharge instruction with orthopedic as arranged for coming Friday in the morning, infectious disease and primary care also need weekly check of CBC and BMP as long as he is on antibiotic and address results with the
primary care and infectious disease. Also advised about returning to the hospital of worsening of the right middle finger swelling or redness or pain come back or develop fever or discharge.
His condition explained to him in detail and expressed understanding.
He is going home where he lives with his family independently patient already have a midline placed in
Important imaging findings :
None
Discharge Instructions:
Discharge Diagnosis/ProceduresRight middle finger infection
Elevated LFTs
Hypertension
Coronary artery disease
High cholesterol
Fatty liver
Diet 2 Gram Sodium,Low Cholesterol
Additional Activity Follow postoperative instructions
Blood Work CBC and CMP 4 days, On weekly basis as long as
on antibiotics, And addressed the result with
primary care and infectious disease
Instructions:
Stand-Alone Forms:
Changes to Home Medications: No
Discharge Medications:
DC Medications w/original date entered in [employer]
aspirin 325 mg tablet,delayed release 325 mg PO DAILY 02/14/19
amlodipine 5 mg tablet 5 mg PO DAILY 08/26/24
carvedilol 25 mg tablet (Coreg) 25 mg PO BID 08/26/24
lisinopril 20 mg tablet 20 mg PO DAILY 08/26/24
rosuvastatin 20 mg tablet 20 mg PO DAILY@199908/26/24
ceftriaxone 2 gram solution for injection 2,000 mg IV Q24H #15 ea 09/04/24
collagenase clostridium histo. 250 unit/gram topical ointment (Santyl) 1 applic topical DAILY #90 grams 09/04/24
docusate sodium 100 mg capsule 100 mg PO BID #60 caps 09/04/24
oxycodone 5 mg tablet 5 mg PO Q4HPRN PRN moderate pain #20 tabs 09/04/24
Home Medication Changes
Pending Results: No
Additional Pending Results:
Physical exam:
General: Awake, alert and oriented x3, not in distress and holds appropriate conversation.
HEENT: No active discharge, ecchymosis or bruising, moist lips, tongue and mucous membrane.
Eyes: No discharge or red conjunctiva, no nystagmus, pupils are reactive and equal
Neck:Supple, no JVD no bruit no goiter.
Respiratory: Normal AP contour and diameter, normal chest wall movement, normal respiratory effort, no respiratory distress,
Lungs: Good air entry bilaterally, no wheezing or rhonchi, no rales or crackles
Heart: S1, S2 regular, normal rate, no added sound.
Gastrointestinal: Positive bowel sounds, soft, nontender, no guarding or rigidity or organomegaly
Musculoskeletal: Swelling, bruising and induration and laceration and loss of skin of the right middle finger with suture, according to the patient is better than before,, no chest wall abnormality or tenderness. All all other joints and
extremities have good range of motion, no other muscle tenderness, normal
Extremities: No pitting edema, good peripheral pulses, good range of motion
Skin: Warm and dry, , normal color.
Neurological: Awake, alert and oriented x3, normal mentation speech clear and comprehensive, good muscle tone,
Psychiatric: Normal mood, normal thought and judgment, normal affect.
Condition on discharge: Awake, alert and oriented x3, answer question properly, able to make own decision and take care of activities of daily living, speech clear and comprehensive, continent of the bowel and bladder, ambulate without recruitment assistant,
goes home where lives with the family independently.
Time spent arranging discharge and evaluating the patient twice and long conversation with the patient and the nurse more than 45-minute
Discharge Plan
-
Patient Disposition: Home (Routine Discharge)
Discharge Diagnosis/Procedures: Right middle finger infection
Elevated LFTs
Hypertension
Coronary artery disease
High cholesterol
Fatty liver
Condition: Good
Diet: Low Cholesterol and 2 Gram Sodium
Additional Activity: Follow postoperative instructions
Blood Work: CBC and CMP 4 days, On weekly basis as long as on antibiotics, And addressed the result with primary care and infectious disease
Activity Restrictions/Additional Instructions:
Wound Care Instructions
R middle finger-Daily wound care-Place clean water basin and mix in Hibiclens Antiseptic cleanser and water to a pink consistency, soak and swish hand, then apply Santyl ointment to black necrotic tissue, cover with adaptic and gauze, secure loosely
with Robert or Kerlix, and/or Manuel to secure loosely.
Non Weight bear RUE as per orthopedic surgeon's instructions.
Follow up with Dr. Hagan.
Exercise and weight loss recommended
If develop fever or worsening of the right middle finger need to come back to the hospital.
-Complete work and daily while on antibiotic.
Biotic medical diarrhea until we assess side effect and usually they go away while he develop worsening diarrhea abdominal pain no fever could be a superadded bowel infection related to antibiotic need to come back to the hospital
Referrals:
Danilo Cervantes MD [Family Provider] -
Marjan Leal PA-C [Specified Professional Personl] - (Friday @ 0830 at our ambulatory office on the same campus at [facility]. )
Concepción Beatty MD [Active] - in two to three weeks
Prescriptions:
New
docusate sodium 100 mg Capsule
100 mg PO BID Qty: 60 0RF
ceftriaxone 2 gram Recon Soln
2,000 mg IV Q24H Qty: 15 0RF
Santyl 250 unit/gram Ointment
1 applic topical DAILY Qty: 90 1RF
oxycodone 5 mg Tablet
5 mg PO Q4HPRN PRN (Reason: moderate pain) Qty: 20 0RF
Continued
aspirin 325 MG tablet,delayed release (DR/EC)
325 mg PO DAILY
carvedilol [Coreg] 25 mg Tablet
25 mg PO BID
lisinopril 20 mg tablet
20 mg PO DAILY
amlodipine 5 mg Tablet
5 mg PO DAILY
rosuvastatin 20 mg tablet
20 mg PO DAILY@1999
Discontinued
ibuprofen [Advil] 200 MG tablet
200 mg PO Q6HPRN PRN (Reason: mild pain)
sulfamethoxazole-trimethoprim 800-160 mg tablet
1 tab PO BID
Rx Instructions:
08/26/24: initiated 08/24/24 x 7 days
cephalexin 500 mg tablet
500 mg PO TID
Rx Instructions:
08/26/24: Started 08/24/24 x 7 days
Discharge Orders:
Discharge Patient (As Directed); Ordered 09/04/24
Ordered By: Shelby Guzman
Discharge Date and Time
Discharge Date/Time: 09/04/24 16:00
Print Language: SCOTTISH
[2024-09-04] MEDS: ROCEPHIN 2000 MG IV (14:53)
[2024-09-04] MEDS: STERILE WATER FOR INJECTION 20 ML IV (14:54)
[2024-09-04 15:47] VITALS: BP 149/96
--- NOTE | 2024-09-04 18:12 | W.DS.TRANS ---
DC Summary - [place]
-
Discharge Instructions:
Discharge Diagnosis/Procedures Right middle finger infection
Elevated LFTs
Hypertension
Coronary artery disease
High cholesterol
Fatty liver
Diet 2 Gram Sodium,Low Cholesterol
Additional Activity Follow postoperative instructions
Blood Work CBC and CMP 4 days, On weekly basis as long as
on antibiotics, And addressed the result with
primary care and infectious disease
Instructions:
Stand-Alone Forms:
Changes to Home Medications: No
Discharge Medications:
DC Medications w/original date entered in [employer]
aspirin 325 mg tablet,delayed release 325 mg PO DAILY 02/14/19
amlodipine 5 mg tablet 5 mg PO DAILY 08/26/24
carvedilol 25 mg tablet (Coreg) 25 mg PO BID 08/26/24
lisinopril 20 mg tablet 20 mg PO DAILY 08/26/24
rosuvastatin 20 mg tablet 20 mg PO DAILY@199908/26/24
ceftriaxone 2 gram solution for injection 2,000 mg IV Q24H #15 ea 09/04/24
collagenase clostridium histo. 250 unit/gram topical ointment (Santyl) 1 applic topical DAILY #90 grams 09/04/24
docusate sodium 100 mg capsule 100 mg PO BID #60 caps 09/04/24
oxycodone 5 mg tablet 5 mg PO Q4HPRN PRN moderate pain #20 tabs 09/04/24
Home Medication Changes
Pending Results: No
Additional Pending Results:
Physical exam:
General: Awake, alert and oriented x3, not in distress and holds appropriate conversation.
HEENT: No active discharge, ecchymosis or bruising, moist lips, tongue and mucous membrane.
Eyes: No discharge or red conjunctiva, no nystagmus, pupils are reactive and equal
Neck:Supple, no JVD no bruit no goiter.
Respiratory: Normal AP contour and diameter, normal chest wall movement, normal respiratory effort, no respiratory distress,
Lungs: Good air entry bilaterally, no wheezing or rhonchi, no rales or crackles
Heart: S1, S2 regular, normal rate, no added sound.
Gastrointestinal: Positive bowel sounds, soft, nontender, no guarding or rigidity or organomegaly
Musculoskeletal: Swelling, bruising and induration and laceration and loss of skin of the right middle finger with suture, according to the patient is better than before,, no chest wall abnormality or tenderness. All all other joints and
extremities have good range of motion, no other muscle tenderness, normal
Extremities: No pitting edema, good peripheral pulses, good range of motion
Skin: Warm and dry, , normal color.
Neurological: Awake, alert and oriented x3, normal mentation speech clear and comprehensive, good muscle tone,
Psychiatric: Normal mood, normal thought and judgment, normal affect.
Condition on discharge: Awake, alert and oriented x3, answer question properly, able to make own decision and take care of activities of daily living, speech clear and comprehensive, continent of the bowel and bladder, ambulate without administrative services assistant,
goes home where lives with the family independently.
== END 2024-09-04 16:00 | disposition home health service (06) | DRG 513 ==
LOC: 2 SOUTH 16:32
PROVIDERS: Emergency Medicine; Hospitalist; Registered Nurse; ADMITTING PHYSICIAN Student in an Organized Health Care Education/Training Program; ATTENDING PHYSICIAN Internal Medicine; CONSULT PHYSICIAN Orthopaedic Surgery; EMERGENCY PHYSICIAN Student in an Organized Health Care Education/Training Program; FAMILY PHYSICIAN Family Medicine; OTHER PHYSICIAN Internal Medicine Infectious Disease
PROC: 0JBJ0ZZ Excision of Right Hand Subcutaneous Tissue and Fascia, Open Approach (ICD-10-PCS; 2024-08-27)
DX: M65.942 Unspecified synovitis and tenosynovitis, left hand (principal); E87.1 Hypo-osmolality and hyponatremia; E87.20 Acidosis, unspecified; Z68.41 Body mass index [BMI] 40.0-44.9, adult; L08.9 Local infection of the skin and subcutaneous tissue, unspecified; L03.011 Cellulitis of right finger; K76.0 Fatty (change of) liver, not elsewhere classified; E66.9 Obesity, unspecified; E87.5 Hyperkalemia; I10 Essential (primary) hypertension
CPT/HCPCS: 29130; 73130; 76700; 80048; 80053; 80202; 82248; 83036; 83735; 85025; 85027; 86706; 86708; 86709; 86803; 87070; 87075; 87077; 87147; 87205; 87340; 96365; 96375; 97161; 97165; 99285

== ENCOUNTER 2024-09-13 18:01 | Emergency (ER) | payer OTHER, SELFPAY ==
[2024-09-13 18:21] VITALS: BP 153/104
--- NOTE | 2024-09-13 20:22 | ED.GENMED ---
History of Present Illness
General
Chief Complaint: Catheter/Tube Problem
Source: patient
Exam Limitations: none
Time Seen by Provider: 09/13/24 20:13
History of Present Illness
History of Present Illness:
Patient with bleeding from a midline. Occurred today. Functioning well. Getting IV antibiotics for a finger infection
Past History
Past History
ED Past Medical History: CAD, HTN and Hypercholesterolemia
ED Past Surgical History: Cardiac (Cardiac stents)
Social History
Tobacco: Non-smoker
Alcohol: Occasional
Drug: None
Employment: Employed
Family History
Family History: Other (Father with cancer of the tongue)
Review of Systems
Review of Systems
All Other Systems: Not applicable
Constitutional: Denies fever or chills
Phy Exam
Physical Exam
Physical Exam:
General: Nontoxic appearing in no distress
Skin: Warm and dry, no rash
Neuro: Alert, nontoxic, grossly nonfocal
Psychiatric: Good eye contact and appropriate
Musculoskeletal: Left midline with well-appearing catheter no surrounding erythema drainage warmth or tenderness. Small amount of blood under the dressing. No active bleeding.
Course
Vital Signs
Initial and Last Documented VS:
Initial Vital Signs
Temp Pulse Resp BP Pulse Ox
99.5 F 69 18 153/104 98
09/13/24 18:21 09/13/24 18:21 09/13/24 18:21 09/13/24 18:21 09/13/24 18:21
Last Documented Vital Signs
Temp Pulse Resp BP Pulse Ox
99.5 F 69 18 153/104 98
09/13/24 18:21 09/13/24 18:21 09/13/24 18:21 09/13/24 18:21 09/13/24 18:21
MDM/Problems Addressed
Differential Diagnosis Includes:
Appears to be small amount of bleeding from the outside of the catheter. No hematoma no infection. Functioning well. Seen and cleared by IV team. Redressed. Appears well.
*Pulse Oximetry
Patient hypoxic: no
*Critical Care Note
Total Time (30-74mins, 75-104mins- exclusive of procedures): Not Applicable
ED Attending Note
-
Portions of this chart may have been created with voice recognition software.� Occasional wrong word or��sound alike� substitutions may have occurred due to the inherent limitations of voice recognition software.
Discharge Plan
Departure
Patient Disposition: Home (Routine Discharge)
Date of Disposition: 09/13/24
Time of Disposition: 20:54
Patient with high blood pressure during this ER visit?: Yes
Discharge Problem:
Bleeding from left midline catheter
Instructions: BLOOD PRESSURE
Prescriptions:
No Action
aspirin 325 MG tablet,delayed release (DR/EC)
325 mg PO DAILY
carvedilol [Coreg] 25 mg Tablet
25 mg PO BID
lisinopril 20 mg tablet
20 mg PO DAILY
amlodipine 5 mg Tablet
5 mg PO DAILY
rosuvastatin 20 mg tablet
20 mg PO DAILY@1999
docusate sodium 100 mg Capsule
100 mg PO BID Qty: 60 0RF
ceftriaxone 2 gram Recon Soln
2,000 mg IV Q24H Qty: 15 0RF
Santyl 250 unit/gram Ointment
1 applic topical DAILY Qty: 90 1RF
oxycodone 5 mg Tablet
5 mg PO Q4HPRN PRN (Reason: moderate pain) Qty: 20 0RF
Activity Restrictions/Additional Instructions:
Continue your current care
Return with malfunctioning catheter, recurrent bleeding, redness drainage arm swelling or any other concerning symptoms
Discharge Date and Time
Print Language: SWEDISH
[2024-09-13 21:13] VITALS: BP 153/109
== END 2024-09-13 22:23 | disposition home or self-care (01) ==
LOC: EMR 18:01
PROVIDERS: EMERGENCY PHYSICIAN Emergency Medicine; FAMILY PHYSICIAN Family Medicine
DX: T82.838A Hemorrhage due to vascular prosthetic devices, implants and grafts, initial encounter (principal); X58.XXXA Exposure to other specified factors, initial encounter; I10 Essential (primary) hypertension
CPT/HCPCS: 99282

== ENCOUNTER 2024-09-28 06:09 | Day surgery (SDC) | payer OTHER, SELFPAY ==
[2024-09-28] VITALS (7 sets, daily range): BP systolic 100–155; BP diastolic 63–88; BMI 40.4
[2024-09-28] MEDS: CELEBREX 200 MG PO (10:56)
[2024-09-28] MEDS: NORMOSOL-R/PLASMALYTE-A 1000 IV (10:56)
[2024-09-28] MEDS: TYLENOL 1000 MG PO (10:56)
--- NOTE | 2024-09-28 11:00 | PTCARENOTE ---
Left mid line flushed with 10 ml of 0.9 NSS prior to starting IV fluids as ordered.
== END 2024-09-28 16:50 | disposition home or self-care (01) ==
LOC: SDS 06:09
PROVIDERS: ATTENDING PHYSICIAN Orthopaedic Surgery; FAMILY PHYSICIAN Family Medicine
DX: M65.841 Other synovitis and tenosynovitis, right hand (principal); M87.844 Other osteonecrosis, right finger(s); M65.331 Trigger finger, right middle finger; Z98.890 Other specified postprocedural states
CPT/HCPCS: 15240; 11042; 15002